=== PATIENT | male | born 1970 | race Caucasian/White ===

== ENCOUNTER 2016-11-17 22:31 | Inpatient (IN) | payer OTHER ==
[~2016-11-17] VITALS: Ht 172.7 cm; Wt 80.4 kg
[~2016-11-17 22:31] MED LIST: OXYC-360 PO; POLY10O LEFT EYE; Z.0.NO CURRENT MEDS
[2016-11-17 22:34] VITALS: BP 154/95; PULSE 97; RESP 16; TEMP 101.7; O2SAT 97
--- NOTE | 2016-11-17 22:49 | PD ---
Physical Exam Time Seen by Provider: 22:47 Narrative 46 y/o male here with 3 days of R leg redness, swelling. He thinks he was bit by a spider although he doesn't recall a spider biting him. He is febrile in triage. Vital signs reviewed. Seen at triage desk. Awaiting bed placement. Data Data Last Documented VS Vital Signs Date Time Temp Pulse Resp B/P Pulse Ox O2 Delivery O2 Flow Rate FiO2 11/17/16 22:34 101.7 97 16 154/95 97 MDM Medical Record Reviewed: Yes Supervised Visit with APRIL: Foreign Chan Nov 17, 2016 22:49
[2016-11-17] MEDS ORDERED: LISI-515 PO (23:36)
[2016-11-17] MEDS ORDERED: AMLO5 PO (23:36)
[2016-11-17] MEDS ORDERED: PIPERACIL-TAZO 4.5 GM PREMIX 100 ML IV ONE (23:45)
[2016-11-17] MEDS ORDERED: IBUPROFEN 800 MG TAB PO ONE (23:45)
[2016-11-17] MEDS ORDERED: VANCOMYCIN INJ 1,500 MG in SODIUM CHLORID 0.9% 500 ML INJ 500 ML IV ONE (23:45)
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
[2016-11-18] MEDS ORDERED: SODIUM CHLORIDE 0.9% FLUSH 10 ML FLUSH IV FLUSH PRN (00:15)
[2016-11-18] MEDS ORDERED: Vancomycin Consult Pharmacy 1 EA OTHER SCH (00:15)
[2016-11-18] MEDS ORDERED: NALOXONE HCL 0.4 MG/ML AMP IV PRN (00:15)
[2016-11-18 00:33] LABS: AUTOMATED NEUTROPHIL # 9.7 TH/MM3 (1.8-7.7); BASOPHIL % 0.4 % (0.0-2.0); EOSINOPHIL % 0.2 % (0.0-4.0); HEMATOCRIT 32.5 % (39.0-51.0); HEMO FLAGS DIFF FINAL; LYMPH % 9.9 % (9.0-44.0); LYMPHOCYTE # 1.2 TH/MM3 (1.0-4.8); MEAN CELL VOLUME 87.2 FL (80.0-100.0); MEAN CORPUSCULAR HEMOGLOBIN 29.6 PG (27.0-34.0); MONO % 11.1 % (0.0-8.0); NEUT % 78.4 % (16.0-70.0); PLATELET COUNT 117 TH/MM3 (150-450); RED BLOOD COUNT 3.72 MIL/MM3 (4.50-5.90); RED CELL DISTRIBUTION WIDTH 13.8 % (11.6-17.2); WHITE BLOOD COUNT 12.4 TH/MM3 (4.0-11.0)
[2016-11-18 00:46] LABS: BICARBONATE 29.8 MEQ/L (21.0-32.0); POTASSIUM 3.2 MEQ/L (3.5-5.1)
[2016-11-18] MEDS ORDERED: POTASSIUM CHLORIDE 20 MEQ CONTROLLED RELEASE TAB PO ONE (01:30)
[2016-11-18] MEDS: PIPERACIL-TAZO 4.5 GM PREMIX 100 ML IV SCH ×2 (05:47→11:31)
[2016-11-18 06:23] VITALS: BP 115/65; PULSE 68; RESP 16; O2SAT 97
[2016-11-18 08:00] VITALS: BP 113/67; PULSE 70; RESP 15; TEMP 97.8
[2016-11-18] MEDS ORDERED: ACETAMINOPHEN 325 MG TAB PO PRN (08:15)
--- NOTE | 2016-11-18 08:24 | HHI.HP ---
[facility] No Primary Care Physician Admission Diagnosis right lower leg abscess with cellulitis Diagnoses: (1) Cellulitis and abscess of right leg Diagnosis: Principal Chief Complaint: right leg swelling and pain Travel History International Travel<30 Days: No Contact w/Intl Traveler <30 Da: No Traveled to Known Affected Are: No Sepsis Criteria SIRS Criteria (2 or more): Temp > 100.9 or < 96.8, Heart rate over 90, WBC > 60025, < 4000 or > 10% bands Sepsis Criteria (SIRS+source): Infect source susp/known Criteria Outcome: Meets sepsis criteria History of Present Illness patient is a 46 y/o male with history of hypertension who presented to ER with swelling and redness over the right leg. he says that he probably had a spider bite a few days ago. he started to have some swelling and redness over the right leg which gradually got worse.he had some fever at home. he's complaining of some pain to the right leg. Review of Systems Constitutional: COMPLAINS OF: Fever right leg pain,swelling and redness. Past Family Social History Past Medical History hypertension Past Surgical History hernia repair Reported Medications lisinopril amlodipine Allergies: Coded Allergies: No Known Allergies (Verified , 11/17/16) Active Ordered Medications Current Medications Vancomycin HCl 1500 mg/Sodium Chloride 515 ml @ 250 mls/hr ONCE ONCE IV Last administered on 11/18/16 00:51; Start 11/17/16 at 23:45; Stop 11/18/16 at 01:48; Status DC Piperacillin Sod/ Tazobactam Sod (Zosyn 4.5 Gm Premix) 100 ml @ 200 mls/hr ONCE ONCE IV Last administered on 11/17/16 23:59; Start 11/17/16 at 23:45; Stop 11/18/16 at 00:14; Status DC Ibuprofen (Motrin) 800 mg ONCE ONCE PO Last administered on 11/17/16 23:59; Start 11/17/16 at 23:45; Stop 11/17/16 at 23:47; Status DC Sodium Chloride (NS Flush) 2 ml UNSCH PRN IV FLUSH FLUSH AFTER USING IV ACCESS ; Start 11/18/16 at 00:15 Sodium Chloride (NS Flush) 2 ml BID IV FLUSH ; Start 11/18/16 at 09:00 Naloxone HCl 0.4 mg 0.4 mg UNSCH PRN IV SEE LABEL COMMENTS; Start 11/18/16 at 00 :15 Pharmacy Profile Note 0 ml @ 0 mls/hr UNSCH OTHER ; Start 11/18/16 at 00:15 Piperacillin Sod/ Tazobactam Sod (Zosyn 4.5 Gm Premix) 100 ml @ 200 mls/hr Q6H IV Last administered on 11/18/16 05:47; Start 11/18/16 at 06:00 Potassium Chloride (KCl) 40 meq ONCE ONCE PO Last administered on 11/18/16 01: 35; Start 11/18/16 at 01:30; Stop 11/18/16 at 01:31; Status DC Family History not relevant to this admission. Social History doesn't smoke or drink. Physical Exam Vital Signs Vital Signs Date Time Temp Pulse Resp B/P Pulse Ox O2 Delivery O2 Flow Rate FiO2 11/18/16 06:23 68 16 115/65 97 Room Air 11/17/16 22:34 101.7 97 16 154/95 97 Physical Exam GENERAL: This is a well-nourished, well-developed patient, in no apparent distress. SKIN: No rashes, ecchymoses or lesions. Cool and dry. HEAD: Atraumatic. Normocephalic. No temporal or scalp tenderness. EYES: Pupils equal round and reactive. Extraocular motions intact. No scleral icterus. No injection or drainage. ENT: Nose without bleeding, purulent drainage or septal hematoma. Throat without erythema, tonsillar hypertrophy or exudate. Uvula midline. Airway patent. NECK: Trachea midline. No JVD or lymphadenopathy. Supple, nontender, no meningeal signs. CARDIOVASCULAR: Regular rate and rhythm without murmurs, gallops, or rubs. RESPIRATORY: Clear to auscultation. Breath sounds equal bilaterally. No wheezes , rales, or rhonchi. GASTROINTESTINAL: Abdomen soft, non-tender, nondistended. No hepato-splenomegaly , or palpable masses. No guarding. MUSCULOSKELETAL: swelling, erythema, warmth and tenderness over the right leg. NEUROLOGICAL: Awake and alert. Cranial nerves II through XII intact. Motor and sensory grossly within normal limits. Five out of 5 muscle strength in all muscle groups. Normal speech. Laboratory Laboratory Tests Test 11/17/16 23:55 White Blood Count 12.4 Red Blood Count 3.72 Hemoglobin 11.0 Hematocrit 32.5 Mean Corpuscular Volume 87.2 Mean Corpuscular Hemoglobin 29.6 Mean Corpuscular Hemoglobin 34.0 Concent Red Cell Distribution Width 13.8 Platelet Count 117 Mean Platelet Volume 11.7 Neutrophils (%) (Auto) 78.4 Lymphocytes (%) (Auto) 9.9 Monocytes (%) (Auto) 11.1 Eosinophils (%) (Auto) 0.2 Basophils (%) (Auto) 0.4 Neutrophils # (Auto) 9.7 Lymphocytes # (Auto) 1.2 Monocytes # (Auto) 1.4 Eosinophils # (Auto) 0.0 Basophils # (Auto) 0.0 CBC Comment DIFF FINAL Differential Comment Sodium Level 135 Potassium Level 3.2 Chloride Level 98 Carbon Dioxide Level 29.8 Anion Gap 7 Blood Urea Nitrogen 11 Creatinine 0.68 Estimat Glomerular Filtration 126 Rate Random Glucose 78 Calcium Level 8.4 Date/Time Procedure Status Source Growth 11/18/16 00:00 Aerobic Blood Culture Received Blood Peripheral Pending 11/18/16 00:00 Anaerobic Blood Culture Received Blood Peripheral Pending 11/17/16 23:55 Gram Stain Received Wound Leg Pending 11/17/16 23:55 Wound Culture Received Wound Leg Pending Result Diagram: 11/17/16 2355 11/17/16 2355 Assessment and Plan Assessment and Plan A/P - sepsis due to cellulitis of the right leg continue with IV antibiotic and pain control- ID consulted. -hypokalemia; replaced. -hypertension; resume home med Discussed Condition With the patient. Physician Certification 2 Midnight Certification Type: Admission for Inpatient Services Order for Inpatient Services The services are ordered in accordance with Medicare regulations or non- Medicare payer requirements, as applicable. In the case of services not specified as inpatient-only, they are appropriately provided as inpatient services in accordance with the 2-midnight benchmark. Estimated LOS (days): 2 days is the estimated time the patient will need to remain in the hospital, assuming treatment plan goals are met and no additional complications. Post-Hospital Plan: Home Antonio Kinney MD Nov 18, 2016 08:24
[2016-11-18] MEDS: amLODIPine BESYLATE 5 MG TAB PO SCH (10:16)
[2016-11-18] MEDS: SODIUM CHLORIDE 0.9% FLUSH 10 ML FLUSH IV FLUSH SCH ×2 (10:16→19:44)
[2016-11-18] MEDS: LISINOPRIL 20 MG TAB PO SCH (10:16)
[2016-11-18 11:54] VITALS: BP 140/70; PULSE 91; RESP 18; TEMP 100; O2SAT 95
[2016-11-18 15:03] VITALS: BP 142/67
[2016-11-18 15:10] VITALS: BP 141/81; PULSE 84; RESP 20; TEMP 98.8; O2SAT 99
[2016-11-18] MEDS: PHARMACY ORDERED LAB ONE (16:00)
[2016-11-18] MEDS: ACETAMINOPHEN/HYDROcodone 325 MG/5 MG TAB PO PRN (16:04)
[2016-11-18] MEDS: VANCOMYCIN INJ 2,000 MG in SODIUM CHLORID 0.9% 500 ML INJ 500 ML IV SCH (16:05)
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
[2016-11-18] MEDS: ceFAZolin 2 GM PREMIX 50 ML IV SCH (19:43)
[2016-11-18 20:00] VITALS: BP 128/73; PULSE 83; RESP 18; TEMP 98.8; O2SAT 97
[2016-11-19] VITALS: BP 138/80; PULSE 92; RESP 18; TEMP 100.3; O2SAT 96
[2016-11-19] MEDS: VANCOMYCIN INJ 2,000 MG in SODIUM CHLORID 0.9% 500 ML INJ 500 ML IV SCH ×2 (00:17→16:58)
[2016-11-19] MEDS: ceFAZolin 2 GM PREMIX 50 ML IV SCH ×4 (00:17→23:44)
[2016-11-19] MEDS: ACETAMINOPHEN/HYDROcodone 325 MG/5 MG TAB PO PRN ×5 (00:17→23:44)
[2016-11-19 04:00] VITALS: BP 111/64; PULSE 81; RESP 16; TEMP 99.2; O2SAT 95
[2016-11-19 08:00] VITALS: BP 150/85; PULSE 89; RESP 20; TEMP 98.4; O2SAT 99
[2016-11-19 08:47] LABS: BASOPHIL % 0.4 % (0.0-2.0); EOSINOPHIL # 0.2 TH/MM3 (0-0.4); EOSINOPHIL % 2.2 % (0.0-4.0); HEMATOCRIT 32.7 % (39.0-51.0); HEMO FLAGS DIFF FINAL; LYMPH % 11.2 % (9.0-44.0); LYMPHOCYTE # 0.9 TH/MM3 (1.0-4.8); MEAN CELL VOLUME 88.3 FL (80.0-100.0); MEAN CORPUSCULAR HEMOGLOBIN 29.3 PG (27.0-34.0); MEAN CORPUSCULAR HGB CONC 33.2 % (32.0-36.0); MONO % 9.8 % (0.0-8.0); NEUT % 76.4 % (16.0-70.0); PLATELET COUNT 104 TH/MM3 (150-450); RED CELL DISTRIBUTION WIDTH 13.6 % (11.6-17.2); WHITE BLOOD COUNT 7.9 TH/MM3 (4.0-11.0)
--- NOTE | 2016-11-19 08:51 | HHI.PR ---
Subjective Remarks f/u; right leg cellulitis still with some pain to the right leg. Tmax 100.3. awaiting MRI of the right leg. d/w the RN. Objective Vitals Vital Signs Date Time Temp Pulse Resp B/P Pulse Ox O2 Delivery O2 Flow Rate FiO2 11/19/16 04:00 99.2 81 16 111/64 95 11/19/16 00:00 100.3 92 18 138/80 96 11/18/16 20:00 98.8 83 18 128/73 97 11/18/16 15:19 Room Air 11/18/16 15:10 98.8 84 20 141/81 99 11/18/16 15:03 89 19 142/67 99 11/18/16 11:54 100.0 91 18 140/70 95 Room Air I/O 11/18/16 11/18/16 11/18/16 11/19/16 11/19/16 11/19/16 06:59 14:59 22:59 06:59 14:59 22:59 Intake Total 720 ml 480 ml Balance 720 ml 480 ml Intake Oral 720 ml 480 ml # Voids 2 2 2 # Bowel Movements 0 0 Result Diagram: 11/17/16235411/17/165 Objective Remarks GENERAL: This is a well-nourished, well-developed patient, in no apparent distress. CARDIOVASCULAR: Regular rate and regular rhythm without murmurs, gallops, or rubs. RESPIRATORY: Clear to auscultation. Breath sounds equal bilaterally. No wheezes , rales, or rhonchi. GASTROINTESTINAL: Abdomen soft, non-tender, nondistended. Normal, active bowel sounds MUSCULOSKELETAL: swelling of the right leg NEURO: Alert & Oriented x4 to person, place, time, situation. Moves all ext x4 skin; erythema and warmth over the right leg. Medications and IVs Current Medications Vancomycin HCl 1500 mg/Sodium Chloride 515 ml @ 250 mls/hr ONCE ONCE IV Last administered on 11/18/16 00:51; Start 11/17/16 at 23:45; Stop 11/18/16 at 01:48; Status DC Piperacillin Sod/ Tazobactam Sod (Zosyn 4.5 Gm Premix) 100 ml @ 200 mls/hr ONCE ONCE IV Last administered on 11/17/16 23:59; Start 11/17/16 at 23:45; Stop 11/18/16 at 00:14; Status DC Ibuprofen (Motrin) 800 mg ONCE ONCE PO Last administered on 11/17/16 23:59; Start 11/17/16 at 23:45; Stop 11/17/16 at 23:47; Status DC Sodium Chloride (NS Flush) 2 ml UNSCH PRN IV FLUSH FLUSH AFTER USING IV ACCESS ; Start 11/18/16 at 00:15 Sodium Chloride (NS Flush) 2 ml BID IV FLUSH Last administered on 11/18/16 19: 44; Start 11/18/16 at 09:00 Naloxone HCl 0.4 mg 0.4 mg UNSCH PRN IV SEE LABEL COMMENTS; Start 11/18/16 at 00 :15 Pharmacy Profile Note 0 ml @ 0 mls/hr UNSCH OTHER ; Start 11/18/16 at 00:15 Piperacillin Sod/ Tazobactam Sod (Zosyn 4.5 Gm Premix) 100 ml @ 200 mls/hr Q6H IV Last administered on 11/18/16 11:31; Start 11/18/16 at 06:00; Stop 11/18/16 at 16:16; Status DC Potassium Chloride (KCl) 40 meq ONCE ONCE PO Last administered on 11/18/16 01: 35; Start 11/18/16 at 01:30; Stop 11/18/16 at 01:31; Status DC Acetaminophen (Tylenol) 650 mg Q4H PRN PO FEVER/PAIN 1-5 Last administered on 12:10; Start 11/18/16 at 08:15 Acetaminophen/ Hydrocodone Bitart ([place] 5-325 Mg) 1 tab Q6H PRN PO PAIN 6-10 Last administered on 11/19/16 00:17; Start 11/18/16 at 08:15 Amlodipine Besylate (Norvasc) 5 mg DAILY PO Last administered on 11/18/16 10:16 ; Start 11/18/16 at 09:00 Lisinopril (Prinivil) 20 mg DAILY PO Last administered on 11/18/16 10:16; Start 11/18/16 at 09:00 Miscellaneous Information SPECIFIC LAB TO BE DRAWN:VANCO TROUGH DATE TO... ONCE ONCE .XX ; Start 11/19/16 at 12:45; Stop 11/19/16 at 12:46 Vancomycin HCl 2000 mg/Sodium Chloride 520 ml @ 250 mls/hr Q12H IV Last administered on 11/19/16 00:17; Start 11/18/16 at 13:00 Cefazolin Sodium/ Dextrose (Ancef 2 Gm Premix) 50 ml @ 100 mls/hr Q8H IV Last administered on 11/19/16 00:17; Start 11/18/16 at 17:00 Collagenase (Santyl Oint) 1 applic DAILY TOPICAL ; Start 11/18/16 at 17:00 Pneumococcal Polyvalent Vaccine (Pneumovax-23 Inj) 25 mcg ONCE ONCE IM ; Start 11/19/16 at 10:00; Stop 11/19/16 at 10:01 A/P Assessment and Plan A/P - sepsis due to cellulitis of the right leg continue with IV antibiotic; Ancef and Vanco-continue with pain control- ID consult appreciated and awaiting MRI of the right leg. -hypokalemia; replaced. -hypertension; resume home med -DVT prophylaxis with subq LoveAntonio Perry MD Nov 19, 2016 08:51
[2016-11-19] MEDS: amLODIPine BESYLATE 5 MG TAB PO SCH (08:56)
[2016-11-19] MEDS: LISINOPRIL 20 MG TAB PO SCH (08:56)
[2016-11-19] MEDS: SODIUM CHLORIDE 0.9% FLUSH 10 ML FLUSH IV FLUSH SCH ×2 (09:00→19:24)
[2016-11-19] MEDS: COLLAGENASE OINT 30 GM TUBE TOPICAL SCH (09:02)
[2016-11-19 09:16] LABS: BICARBONATE 31.5 MEQ/L (21.0-32.0); POTASSIUM 3.2 MEQ/L (3.5-5.1)
[2016-11-19] MEDS ORDERED: PNEUMOCOCCAL POLYVALENT INJ 25 MCG/0.5 ML SYR IM ONE (10:00)
[2016-11-19 12:00] VITALS: BP 134/78; PULSE 77; RESP 20; TEMP 99.1; O2SAT 96
[2016-11-19] MEDS ORDERED: POTASSIUM CHLORIDE 20 MEQ CONTROLLED RELEASE TAB PO ONE (12:00)
[2016-11-19] MEDS: ENOXAPARIN SODIUM 40 MG/0.4 ML SYRINGE SQ SCH (13:54)
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
[2016-11-19] MEDS: PHARMACY ORDERED LAB ONE (15:45)
[2016-11-19 16:00] VITALS: BP 141/80; PULSE 88; RESP 20; TEMP 99.3; O2SAT 99
[2016-11-19 20:00] VITALS: BP 135/69; PULSE 80; RESP 18; TEMP 99.3; O2SAT 97
[2016-11-20] VITALS: BP 131/76; PULSE 77; RESP 18; TEMP 98.6; O2SAT 99
[2016-11-20 04:00] VITALS: BP 132/79; PULSE 77; RESP 16; TEMP 98.4; O2SAT 98
[2016-11-20] MEDS: ACETAMINOPHEN/HYDROcodone 325 MG/5 MG TAB PO PRN ×2 (04:38→08:42)
[2016-11-20] MEDS: VANCOMYCIN INJ 2,000 MG in SODIUM CHLORID 0.9% 500 ML INJ 500 ML IV SCH ×2 (04:39→17:31)
[2016-11-20 08:00] VITALS: BP 117/68; PULSE 76; RESP 20; TEMP 99; O2SAT 98
[2016-11-20] MEDS: LISINOPRIL 20 MG TAB PO SCH (08:42)
[2016-11-20] MEDS: SODIUM CHLORIDE 0.9% FLUSH 10 ML FLUSH IV FLUSH SCH ×2 (08:42→20:01)
[2016-11-20] MEDS: amLODIPine BESYLATE 5 MG TAB PO SCH (08:42)
[2016-11-20] MEDS: COLLAGENASE OINT 30 GM TUBE TOPICAL SCH (08:43)
[2016-11-20] MEDS: ceFAZolin 2 GM PREMIX 50 ML IV SCH (08:43)
--- NOTE | 2016-11-20 11:25 | HHI.PR ---
Subjective Remarks in no acute distress. remains afebrile. has some pain to the right leg. Objective Vitals Vital Signs Date Time Temp Pulse Resp B/P Pulse Ox O2 Delivery O2 Flow Rate FiO2 11/20/16 10:33 Room Air 11/20/16 08:00 99.0 76 20 117/68 98 11/20/16 04:00 98.4 77 16 132/79 98 11/20/16 00:00 98.6 77 18 131/76 99 11/19/16 20:00 99.3 80 18 135/69 97 11/19/16 16:00 99.3 88 20 141/80 99 11/19/16 12:00 99.1 77 20 134/78 96 I/O 11/19/16 11/19/16 11/19/16 11/20/16 11/20/16 11/20/16 07:00 15:00 23:00 07:00 15:00 23:00 Intake Total 480 ml 580 ml 1440 ml Balance 480 ml 580 ml 1440 ml Intake Oral 480 ml 580 ml 1440 ml # Voids 2 7 4 # Bowel Movements 0 2 1 Result Diagram: 11/19/16 0725 11/19/16 0728 Objective Remarks GENERAL: This is a well-nourished, well-developed patient, in no apparent distress. CARDIOVASCULAR: Regular rate and regular rhythm without murmurs, gallops, or rubs. RESPIRATORY: Clear to auscultation. Breath sounds equal bilaterally. No wheezes , rales, or rhonchi. GASTROINTESTINAL: Abdomen soft, non-tender, nondistended. Normal, active bowel sounds MUSCULOSKELETAL: swelling of the right leg- seems to be improving. NEURO: Alert & Oriented x4 to person, place, time, situation. Moves all ext x4 skin; erythema and warmth over the right leg. Medications and IVs Current Medications Vancomycin HCl 1500 mg/Sodium Chloride 515 ml @ 250 mls/hr ONCE ONCE IV Last administered on 11/18/16 00:51; Start 11/17/16 at 23:45; Stop 11/18/16 at 01:48; Status DC Piperacillin Sod/ Tazobactam Sod (Zosyn 4.5 Gm Premix) 100 ml @ 200 mls/hr ONCE ONCE IV Last administered on 11/17/16 23:59; Start 11/17/16 at 23:45; Stop 11/18/16 at 00:14; Status DC Ibuprofen (Motrin) 800 mg ONCE ONCE PO Last administered on 11/17/16 23:59; Start 11/17/16 at 23:45; Stop 11/17/16 at 23:47; Status DC Sodium Chloride (NS Flush) 2 ml UNSCH PRN IV FLUSH FLUSH AFTER USING IV ACCESS ; Start 11/18/16 at 00:15 Sodium Chloride (NS Flush) 2 ml BID IV FLUSH Last administered on 11/20/16 08: 42; Start 11/18/16 at 09:00 Naloxone HCl 0.4 mg 0.4 mg UNSCH PRN IV SEE LABEL COMMENTS; Start 11/18/16 at 00 :15 Pharmacy Profile Note 0 ml @ 0 mls/hr UNSCH OTHER ; Start 11/18/16 at 00:15 Piperacillin Sod/ Tazobactam Sod (Zosyn 4.5 Gm Premix) 100 ml @ 200 mls/hr Q6H IV Last administered on 11/18/16 11:31; Start 11/18/16 at 06:00; Stop 11/18/16 at 16:16; Status DC Potassium Chloride (KCl) 40 meq ONCE ONCE PO Last administered on 11/18/16 01: 35; Start 11/18/16 at 01:30; Stop 11/18/16 at 01:31; Status DC Acetaminophen (Tylenol) 650 mg Q4H PRN PO FEVER/PAIN 1-5 Last administered on 12:10; Start 11/18/16 at 08:15 Acetaminophen/ Hydrocodone Bitart ([place] 5-325 Mg) 1 tab Q6H PRN PO PAIN 6-10 Last administered on 11/20/16 08:42; Start 11/18/16 at 08:15 Amlodipine Besylate (Norvasc) 5 mg DAILY PO Last administered on 11/20/16 08: 42; Start 11/18/16 at 09:00 Lisinopril (Prinivil) 20 mg DAILY PO Last administered on 11/20/16 08:42; Start 11/18/16 at 09:00 Miscellaneous Information SPECIFIC LAB TO BE DRAWN:VANCO TROUGH DATE TO... ONCE ONCE .XX Last administered on 11/19/16 15:45; Start 11/19/16 at 12:45; Stop 11/19/16 at 12:46; Status DC Vancomycin HCl 2000 mg/Sodium Chloride 520 ml @ 250 mls/hr Q12H IV Last administered on 11/19/16 16:58; Start 11/18/16 at 13:00; Stop 11/19/16 at 20:50 ; Status DC Cefazolin Sodium/ Dextrose (Ancef 2 Gm Premix) 50 ml @ 100 mls/hr Q8H IV Last administered on 11/20/16 08:43; Start 11/18/16 at 17:00 Collagenase (Santyl Oint) 1 applic DAILY TOPICAL Last administered on 08:43; Start 11/18/16 at 17:00 Pneumococcal Polyvalent Vaccine (Pneumovax-23 Inj) 25 mcg ONCE ONCE IM Last administered on 11/19/16 09:00; Start 11/19/16 at 10:00; Stop 11/19/16 at 10:01 ; Status DC Enoxaparin Sodium (Lovenox Inj) 40 mg Q24H SQ Last administered on 11/19/16 13 :54; Start 11/19/16 at 12:00 Potassium Chloride (KCl) 40 meq ONCE ONCE PO Last administered on 11/19/16 13 :54; Start 11/19/16 at 12:00; Stop 11/19/16 at 12:01; Status DC Miscellaneous Information SPECIFIC LAB TO BE DRAWN:VANCO TROUGH DATE TO BE DR... ONCE ONCE .XX ; Start 11/20/16 at 16:45; Stop 11/20/16 at 16:46 Vancomycin HCl/ Sodium Chloride (Vancomycin Inj/ NS 500 ml Inj) 520 ml @ 250 mls/hr Q12H IV Last administered on 11/20/16 04:39; Start 11/20/16 at 05:00 A/P Assessment and Plan A/P - sepsis due to cellulitis of the right leg continue with IV antibiotic; Ancef and Vanco-continue with pain control- ID consult appreciated and awaiting MRI of the right leg. -hypokalemia; replaced. -hypertension; resume home med -DVT prophylaxis with subq LovenoAntonio Landeros MD Nov 20, 2016 11:25
[2016-11-20] MEDS: ENOXAPARIN SODIUM 40 MG/0.4 ML SYRINGE SQ SCH (11:49)
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
[2016-11-20 12:00] VITALS: BP 141/86; PULSE 82; RESP 20; TEMP 98.4; O2SAT 99
[2016-11-20] MEDS: ACETAMINOPHEN/HYDROcodone 325 MG/7.5 MG TAB PO PRN ×3 (13:06→23:56)
[2016-11-20] MEDS ORDERED: GADODIAMIDE PF 287 MG/ML 5 ML VIAL (for RAD MRI) IV ONE (14:26)
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
[2016-11-20 16:00] VITALS: BP 124/70; PULSE 71; RESP 20; TEMP 98.6; O2SAT 97
[2016-11-20] MEDS ORDERED: PHARMACY ORDERED LAB ONE (16:45)
[2016-11-20 20:00] VITALS: BP 129/75; PULSE 68; PULSE 70; RESP 20; TEMP 98.7; O2SAT 96
[2016-11-20] MEDS ORDERED: LORazepam 0.5 MG TAB PO ONE (21:15)
[2016-11-21] VITALS (7 sets, daily range): BP systolic 129–145; BP diastolic 72–84; PULSE 58–81; RESP 16–20; TEMP 97.8–98.6; O2SAT 96–99
[2016-11-21] MEDS: VANCOMYCIN 1750 MG/NS 500 ML IV SCH ×4 (01:04→10:21)
[2016-11-21 07:08] LABS: AUTOMATED NEUTROPHIL # 2.8 TH/MM3 (1.8-7.7); BASOPHIL # 0.1 TH/MM3 (0-0.2); BASOPHIL % 1.2 % (0.0-2.0); EOSINOPHIL # 0.3 TH/MM3 (0-0.4); EOSINOPHIL % 5.1 % (0.0-4.0); HEMO FLAGS DIFF FINAL; LYMPH % 22.8 % (9.0-44.0); LYMPHOCYTE # 1.1 TH/MM3 (1.0-4.8); MEAN CELL VOLUME 85.8 FL (80.0-100.0); MEAN CORPUSCULAR HEMOGLOBIN 29.3 PG (27.0-34.0); MEAN CORPUSCULAR HGB CONC 34.1 % (32.0-36.0); MONO % 14.6 % (0.0-8.0); NEUT % 56.3 % (16.0-70.0); PLATELET COUNT 150 TH/MM3 (150-450); RED BLOOD COUNT 3.84 MIL/MM3 (4.50-5.90); RED CELL DISTRIBUTION WIDTH 13.6 % (11.6-17.2)
[2016-11-21] MEDS: ACETAMINOPHEN/HYDROcodone 325 MG/7.5 MG TAB PO PRN ×3 (07:26→17:54)
[2016-11-21 07:33] LABS: BICARBONATE 28.4 MEQ/L (21.0-32.0); POTASSIUM 3.8 MEQ/L (3.5-5.1)
[2016-11-21] MEDS: COLLAGENASE OINT 30 GM TUBE TOPICAL SCH (09:00)
--- NOTE | 2016-11-21 09:01 | HHI.PR ---
Subjective Remarks in no acute distress. still with some pain to the right leg. remains afebrile. complaining of anxiety. Objective Vitals Vital Signs Date Time Temp Pulse Resp B/P Pulse Ox O2 Delivery O2 Flow Rate FiO2 11/21/16 07:41 Room Air 11/21/16 04:00 98.1 58 20 129/75 96 11/21/16 00:00 98.6 76 20 129/72 96 11/20/16 20:00 70 11/20/16 20:00 98.7 68 20 129/75 96 11/20/16 19:45 Room Air 11/20/16 16:00 98.6 71 20 124/70 97 11/20/16 12:00 98.4 82 20 141/86 99 11/20/16 10:33 Room Air I/O 11/20/16 11/20/16 11/20/16 11/21/16 11/21/16 11/21/16 07:00 15:00 23:00 07:00 15:00 23:00 Intake Total 1440 ml 720 ml 1020 ml 1313 ml Balance 1440 ml 720 ml 1020 ml 1313 ml Intake Oral 1440 ml 720 ml 480 ml 720 ml IV Total 540 ml 593 ml # Voids 4 7 5 3 # Bowel Movements 1 1 0 0 Result Diagram: 11/21/16 0526 11/21/16 0526 Imaging Last Impressions Lower Extremity MRI 11/20/16 0000 Signed Impressions: Service Date/Time: Sunday, November 20, 2016 13:57 - CONCLUSION: Anterior and anterolateral pretibial cellulitis with subcutaneous fluid collection characteristic of an abscess. No bony or deep muscular involvement. Eladio Rojas MD Objective Remarks GENERAL: This is a well-nourished, well-developed patient, in no apparent distress. CARDIOVASCULAR: Regular rate and regular rhythm without murmurs, gallops, or rubs. RESPIRATORY: Clear to auscultation. Breath sounds equal bilaterally. No wheezes , rales, or rhonchi. GASTROINTESTINAL: Abdomen soft, non-tender, nondistended. Normal, active bowel sounds MUSCULOSKELETAL: swelling of the right leg- seems to be improving. NEURO: Alert & Oriented x4 to person, place, time, situation. Moves all ext x4 skin; erythema and warmth over the right leg. Medications and IVs Current Medications Vancomycin HCl 1500 mg/Sodium Chloride 515 ml @ 250 mls/hr ONCE ONCE IV Last administered on 11/18/16 00:51; Start 11/17/16 at 23:45; Stop 11/18/16 at 01:48; Status DC Piperacillin Sod/ Tazobactam Sod (Zosyn 4.5 Gm Premix) 100 ml @ 200 mls/hr ONCE ONCE IV Last administered on 11/17/16 23:59; Start 11/17/16 at 23:45; Stop 11/18/16 at 00:14; Status DC Ibuprofen (Motrin) 800 mg ONCE ONCE PO Last administered on 11/17/16 23:59; Start 11/17/16 at 23:45; Stop 11/17/16 at 23:47; Status DC Sodium Chloride (NS Flush) 2 ml UNSCH PRN IV FLUSH FLUSH AFTER USING IV ACCESS ; Start 11/18/16 at 00:15 Sodium Chloride (NS Flush) 2 ml BID IV FLUSH Last administered on 11/20/16 20: 01; Start 11/18/16 at 09:00 Naloxone HCl 0.4 mg 0.4 mg UNSCH PRN IV SEE LABEL COMMENTS; Start 11/18/16 at 00 :15 Pharmacy Profile Note 0 ml @ 0 mls/hr UNSCH OTHER ; Start 11/18/16 at 00:15 Piperacillin Sod/ Tazobactam Sod (Zosyn 4.5 Gm Premix) 100 ml @ 200 mls/hr Q6H IV Last administered on 11/18/16 11:31; Start 11/18/16 at 06:00; Stop 11/18/16 at 16:16; Status DC Potassium Chloride (KCl) 40 meq ONCE ONCE PO Last administered on 11/18/16 01: 35; Start 11/18/16 at 01:30; Stop 11/18/16 at 01:31; Status DC Acetaminophen (Tylenol) 650 mg Q4H PRN PO FEVER/PAIN 1-5 Last administered on 12:10; Start 11/18/16 at 08:15 Acetaminophen/ Hydrocodone Bitart ([place] 5-325 Mg) 1 tab Q6H PRN PO PAIN 6-10 Last administered on 11/20/16 08:42; Start 11/18/16 at 08:15; Stop 11/20/16 at 12:50; Status DC Amlodipine Besylate (Norvasc) 5 mg DAILY PO Last administered on 11/20/16 08: 42; Start 11/18/16 at 09:00 Lisinopril (Prinivil) 20 mg DAILY PO Last administered on 11/20/16 08:42; Start 11/18/16 at 09:00 Miscellaneous Information SPECIFIC LAB TO BE DRAWN:VANCO TROUGH DATE TO... ONCE ONCE .XX Last administered on 11/19/16 15:45; Start 11/19/16 at 12:45; Stop 11/19/16 at 12:46; Status DC Vancomycin HCl 2000 mg/Sodium Chloride 520 ml @ 250 mls/hr Q12H IV Last administered on 11/19/16 16:58; Start 11/18/16 at 13:00; Stop 11/19/16 at 20:50 ; Status DC Cefazolin Sodium/ Dextrose (Ancef 2 Gm Premix) 50 ml @ 100 mls/hr Q8H IV Last administered on 11/20/16 08:43; Start 11/18/16 at 17:00; Stop 11/20/16 at 11:58 ; Status DC Collagenase (Santyl Oint) 1 applic DAILY TOPICAL Last administered on 08:43; Start 11/18/16 at 17:00 Pneumococcal Polyvalent Vaccine (Pneumovax-23 Inj) 25 mcg ONCE ONCE IM Last administered on 11/19/16 09:00; Start 11/19/16 at 10:00; Stop 11/19/16 at 10:01 ; Status DC Enoxaparin Sodium (Lovenox Inj) 40 mg Q24H SQ Last administered on 11/20/16 11 :49; Start 11/19/16 at 12:00 Potassium Chloride (KCl) 40 meq ONCE ONCE PO Last administered on 11/19/16 13 :54; Start 11/19/16 at 12:00; Stop 11/19/16 at 12:01; Status DC Miscellaneous Information SPECIFIC LAB TO BE DRAWN:VANCO TROUGH DATE TO BE DR... ONCE ONCE .XX Last administered on 11/20/16 16:45; Start 11/20/16 at 16 :45; Stop 11/20/16 at 16:46; Status DC Vancomycin HCl/ Sodium Chloride (Vancomycin Inj/ NS 500 ml Inj) 520 ml @ 250 mls/hr Q12H IV Last administered on 11/20/16 17:31; Start 11/20/16 at 05:00; Stop 11/20/16 at 22:48; Status DC Acetaminophen/ Hydrocodone Bitart ([place] 7.5-325 Mg) 1 tab Q6H PRN PO PAIN 6- 10 Last administered on 11/21/16 07:26; Start 11/20/16 at 13:00 Gadodiamide (Omniscan Pf Inj) 15 ml STK-MED ONCE IV Last administered on 14:26; Start 11/20/16 at 14:26; Stop 11/20/16 at 14:27; Status DC Lorazepam 0.5 mg 0.5 mg ONCE ONCE PO Last administered on 11/20/16 21:43; Start 11/20/16 at 21:15; Stop 11/20/16 at 21:16; Status DC Vancomycin HCl/ Sodium Chloride (Vancomycin Inj/ NS 500 ml Inj) 517.5 ml @ 250 mls/hr Q8H IV Last administered on 11/21/16 01:04; Start 11/21/16 at 02:00 Miscellaneous Information SPECIFIC LAB TO BE ... ONCE ONCE .XX ; Start 11/21 at 17:45; Stop 11/21/16 at 17:46 A/P Assessment and Plan A/P - sepsis due to cellulitis of the right leg MRI of the right leg with : Anterior and anterolateral pretibial cellulitis with subcutaneous fluid collection characteristic of an abscess. No bony or deep muscular involvement. wound culture with MRSA. continue with IV Vanco-continue with pain control- ID following- will consult general surgery. -hypokalemia; replaced. -hypertension; resumed home med -DVT prophylaxis with subq Antonio Alexander MD Nov 21, 2016 09:01
[2016-11-21] MEDS: LISINOPRIL 20 MG TAB PO SCH (10:07)
[2016-11-21] MEDS: SODIUM CHLORIDE 0.9% FLUSH 10 ML FLUSH IV FLUSH SCH ×2 (10:07→21:27)
[2016-11-21] MEDS: amLODIPine BESYLATE 5 MG TAB PO SCH (10:07)
[2016-11-21] MEDS: ENOXAPARIN SODIUM 40 MG/0.4 ML SYRINGE SQ SCH (13:49)
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
[2016-11-21] MEDS ORDERED: PHARMACY ORDERED LAB ONE (17:45)
[2016-11-21] MEDS: LORazepam 0.5 MG TAB PO PRN (21:26)
[2016-11-22] VITALS (7 sets, daily range): BP systolic 120–139; BP diastolic 66–87; PULSE 60–76; RESP 18; TEMP 97.5–98.6; O2SAT 97–100
[2016-11-22] MEDS: ACETAMINOPHEN/HYDROcodone 325 MG/7.5 MG TAB PO PRN ×2 (00:02→06:29)
[2016-11-22] MEDS: VANCOMYCIN 1750 MG/NS 500 ML IV SCH ×6 (00:04→17:39)
[2016-11-22] MEDS ORDERED: PHARMACY ORDERED LAB ONE (08:45)
[2016-11-22] MEDS: SODIUM CHLORIDE 0.9% FLUSH 10 ML FLUSH IV FLUSH SCH ×2 (08:55→19:46)
[2016-11-22] MEDS: COLLAGENASE OINT 30 GM TUBE TOPICAL SCH (09:00)
[2016-11-22] MEDS ORDERED: GENTAMICIN SULFATE 80 MG/2 ML VIAL ONE (09:33)
[2016-11-22] MEDS ORDERED: DO NOT ADM ANY ANTICOAGULANT DRUGS PRN (10:05)
--- NOTE | 2016-11-22 10:06 | PD.OP ---
Operative Report Date of Surgery: Nov 22, 2016 Preoperative Diagnosis: R leg abscess Postoperative Diagnosis: same Procedure: Incision and drainage, minimal debridement R leg abscess with Vac dressing placement. Anesthesia: general Surgeon: David Abdul Secondary Market Manager(s): Albarran Operation and Findings: 14 cm length SQ abscess, minimal residual purulent drainage. David Abdul MD Nov 22, 2016 10:06
[2016-11-22] MEDS ORDERED: *morphine SULFATE 8 MG/ML PERIprocedure ONLY ONE (10:08)
[2016-11-22] MEDS ORDERED: fentaNYL CITRATE 250 MCG/5 ML AMP ONE (10:12)
[2016-11-22] MEDS ORDERED: *HYDROmorphone PF 1 MG VIAL PERIprocedural Use ONLY ONE (10:13)
[2016-11-22] MEDS ORDERED: Post-op Orders (for Pharmacy) MISC XX ONE (10:15)
[2016-11-22] MEDS ORDERED: SODIUM CHLORIDE 0.9% FLUSH 10 ML FLUSH IV FLUSH PRN (10:15)
[2016-11-22] MEDS ORDERED: HYDROmorphone HCL PF 1 MG/ML VIAL IV ONE (11:00)
[2016-11-22] MEDS: amLODIPine BESYLATE 5 MG TAB PO SCH (11:10)
[2016-11-22] MEDS: LISINOPRIL 20 MG TAB PO SCH (11:10)
[2016-11-22] MEDS: ACETAMINOPHEN 1000 MG/100 ML VIAL IV SCH ×2 (11:13→19:46)
[2016-11-22] MEDS: ENOXAPARIN SODIUM 40 MG/0.4 ML SYRINGE SQ SCH (11:14)
[2016-11-22] MEDS ORDERED: ONDANSETRON HCL 4 MG/2 ML VIAL IV PUSH ONE (12:00)
[2016-11-22] MEDS ORDERED: PROPOFOL 200 MG/20 ML AMP IV ONE (12:00)
[2016-11-22] MEDS: KETOROLAC TROMETHAMINE 30 MG/ML (IVP) VIAL IV PUSH SCH ×2 (12:48→17:41)
--- NOTE | 2016-11-22 13:51 | HHI.PR ---
Subjective Remarks resting comfortably with no distress. afebrile. pain is fairly controlled. no new complaints. Objective Vitals Vital Signs Date Time Temp Pulse Resp B/P Pulse Ox O2 Delivery O2 Flow Rate FiO2 11/22/16 12:00 97.7 60 18 138/87 100 11/22/16 10:35 60 16 98 Room Air 11/22/16 10:30 97.5 59 16 133/76 98 Room Air 11/22/16 10:15 62 16 131/79 96 Room Air 11/22/16 10:13 15 11/22/16 10:05 97.4 72 20 126/77 100 Nasal Cannula 3 11/22/16 08:00 98.6 67 18 133/75 98 11/22/16 07:00 Room Air 11/22/16 04:00 97.5 62 18 120/75 98 11/22/16 00:00 98.0 68 18 139/66 97 11/22/16 00:00 Room Air 11/21/16 20:00 71 11/21/16 20:00 Room Air 11/21/16 20:00 97.8 63 16 136/82 99 11/21/16 17:19 11/21/16 16:00 98.1 64 18 145/75 96 11/21/16 13:59 I/O 11/21/16 11/21/16 11/21/16 11/22/16 11/22/16 11/22/16 07:00 15:00 23:00 07:00 15:00 23:00 Intake Total 1313 ml 1460 ml 720 ml 500 ml Output Total 3 ml 30 ml Balance 1313 ml 1460 ml 720 ml -3 ml 470 ml Intake Oral 720 ml 960 ml 720 ml IV Total 593 ml 500 ml 100 ml Other 400 ml Output Urine Total 3 ml Estimated Blood Loss 30 ml # Voids 3 3 3 # Bowel Movements 0 0 Result Diagram: 11/21/16 0526 11/21/16 0526 Imaging Last Impressions Lower Extremity MRI 11/20/16 0000 Signed Impressions: Service Date/Time: Sunday, November 20, 2016 13:57 - CONCLUSION: Anterior and anterolateral pretibial cellulitis with subcutaneous fluid collection characteristic of an abscess. No bony or deep muscular involvement. Eladio Rojas MD Objective Remarks GENERAL: This is a well-nourished, well-developed patient, in no apparent distress. CARDIOVASCULAR: Regular rate and regular rhythm without murmurs, gallops, or rubs. RESPIRATORY: Clear to auscultation. Breath sounds equal bilaterally. No wheezes , rales, or rhonchi. GASTROINTESTINAL: Abdomen soft, non-tender, nondistended. Normal, active bowel sounds MUSCULOSKELETAL: wound vac in place- right leg. NEURO: Alert & Oriented x4 to person, place, time, situation. Moves all ext x4 skin; erythema and warmth over the right leg. Procedures I/D of the right leg/ wound vac placement. Medications and IVs Current Medications Vancomycin HCl 1500 mg/Sodium Chloride 515 ml @ 250 mls/hr ONCE ONCE IV Last administered on 11/18/16 00:51; Start 11/17/16 at 23:45; Stop 11/18/16 at 01:48; Status DC Piperacillin Sod/ Tazobactam Sod (Zosyn 4.5 Gm Premix) 100 ml @ 200 mls/hr ONCE ONCE IV Last administered on 11/17/16 23:59; Start 11/17/16 at 23:45; Stop 11/18/16 at 00:14; Status DC Ibuprofen (Motrin) 800 mg ONCE ONCE PO Last administered on 11/17/16 23:59; Start 11/17/16 at 23:45; Stop 11/17/16 at 23:47; Status DC Sodium Chloride (NS Flush) 2 ml UNSCH PRN IV FLUSH FLUSH AFTER USING IV ACCESS ; Start 11/18/16 at 00:15 Sodium Chloride (NS Flush) 2 ml BID IV FLUSH Last administered on 11/22/16 08: 55; Start 11/18/16 at 09:00 Naloxone HCl 0.4 mg 0.4 mg UNSCH PRN IV SEE LABEL COMMENTS; Start 11/18/16 at 00 :15 Pharmacy Profile Note 0 ml @ 0 mls/hr UNSCH OTHER ; Start 11/18/16 at 00:15 Piperacillin Sod/ Tazobactam Sod (Zosyn 4.5 Gm Premix) 100 ml @ 200 mls/hr Q6H IV Last administered on 11/18/16 11:31; Start 11/18/16 at 06:00; Stop 11/18/16 at 16:16; Status DC Potassium Chloride (KCl) 40 meq ONCE ONCE PO Last administered on 11/18/16 01: 35; Start 11/18/16 at 01:30; Stop 11/18/16 at 01:31; Status DC Acetaminophen (Tylenol) 650 mg Q4H PRN PO FEVER/PAIN 1-5 Last administered on 12:10; Start 11/18/16 at 08:15 Acetaminophen/ Hydrocodone Bitart ([place] 5-325 Mg) 1 tab Q6H PRN PO PAIN 6-10 Last administered on 11/20/16 08:42; Start 11/18/16 at 08:15; Stop 11/20/16 at 12:50; Status DC Amlodipine Besylate (Norvasc) 5 mg DAILY PO Last administered on 11/22/16 11: 10; Start 11/18/16 at 09:00 Lisinopril (Prinivil) 20 mg DAILY PO Last administered on 11/22/16 11:10; Start 11/18/16 at 09:00 Miscellaneous Information SPECIFIC LAB TO BE DRAWN:VANCO TROUGH DATE TO... ONCE ONCE .XX Last administered on 11/19/16 15:45; Start 11/19/16 at 12:45; Stop 11/19/16 at 12:46; Status DC Vancomycin HCl 2000 mg/Sodium Chloride 520 ml @ 250 mls/hr Q12H IV Last administered on 11/19/16 16:58; Start 11/18/16 at 13:00; Stop 11/19/16 at 20:50 ; Status DC Cefazolin Sodium/ Dextrose (Ancef 2 Gm Premix) 50 ml @ 100 mls/hr Q8H IV Last administered on 11/20/16 08:43; Start 11/18/16 at 17:00; Stop 11/20/16 at 11:58 ; Status DC Collagenase (Santyl Oint) 1 applic DAILY TOPICAL Last administered on 09:00; Start 11/18/16 at 17:00 Pneumococcal Polyvalent Vaccine (Pneumovax-23 Inj) 25 mcg ONCE ONCE IM Last administered on 11/19/16 09:00; Start 11/19/16 at 10:00; Stop 11/19/16 at 10:01 ; Status DC Enoxaparin Sodium (Lovenox Inj) 40 mg Q24H SQ Last administered on 11/21/16 13 :49; Start 11/19/16 at 12:00 Potassium Chloride (KCl) 40 meq ONCE ONCE PO Last administered on 11/19/16 13 :54; Start 11/19/16 at 12:00; Stop 11/19/16 at 12:01; Status DC Miscellaneous Information SPECIFIC LAB TO BE DRAWN:VANCO TROUGH DATE TO BE .[place] ONCE ONCE .XX Last administered on 11/20/16 16:45; Start 11/20/16 at 16 :45; Stop 11/20/16 at 16:46; Status DC Vancomycin HCl/ Sodium Chloride (Vancomycin Inj/ NS 500 ml Inj) 520 ml @ 250 mls/hr Q12H IV Last administered on 11/20/16 17:31; Start 11/20/16 at 05:00; Stop 11/20/16 at 22:48; Status DC Acetaminophen/ Hydrocodone Bitart ([place] 7.5-325 Mg) 1 tab Q6H PRN PO PAIN 6- 10 Last administered on 11/21/16 07:26; Start 11/20/16 at 13:00; Stop 11/21/16 at 08:58; Status DC Gadodiamide (Omniscan Pf Inj) 15 ml STK-MED ONCE IV Last administered on 14:26; Start 11/20/16 at 14:26; Stop 11/20/16 at 14:27; Status DC Lorazepam 0.5 mg 0.5 mg ONCE ONCE PO Last administered on 11/20/16 21:43; Start 11/20/16 at 21:15; Stop 11/20/16 at 21:16; Status DC Vancomycin HCl/ Sodium Chloride (Vancomycin Inj/ NS 500 ml Inj) 517.5 ml @ 250 mls/hr Q8H IV Last administered on 11/21/16 10:21; Start 11/21/16 at 02:00; Stop 11/21/16 at 16:57; Status DC Miscellaneous Information SPECIFIC LAB TO BE .. ONCE ONCE .XX ; Start 11/21 at 17:45; Stop 11/21/16 at 17:45; Status DC Acetaminophen/ Hydrocodone Bitart ([place] 7.5-325 Mg) 1 tab Q4H PRN PO PAIN 6- 10 Last administered on 11/22/16 06:29; Start 11/21/16 at 12:00 Lorazepam 0.5 mg 0.5 mg Q12HR PRN PO ANXIETY Last administered on 11/21/16 21: 26; Start 11/21/16 at 09:00 Vancomycin HCl/ Sodium Chloride (Vancomycin Inj/ NS 500 ml Inj) 517.5 ml @ 250 mls/hr Q8H IV Last administered on 11/22/16 08:52; Start 11/22/16 at 01:00 Miscellaneous Information SPECIFIC LAB TO BE DAMON... ONCE ONCE .XX Last administered on 11/22/16 08:40; Start 11/22/16 at 08:45; Stop 11/22/16 at 08:46 ; Status DC Gentamicin Sulfate (Gentamicin Inj) 240 mg STK-MED ONCE .ROUTE Last administered on 11/22/16 09:45; Start 11/22/16 at 09:33; Stop 11/22/16 at 09:34 ; Status DC Morphine Sulfate (*morphine INJ PERIprocedure ONLY) 8 mg STK-MED ONCE .ROUTE Last administered on 11/22/16 10:08; Start 11/22/16 at 10:08; Stop 11/22/16 at 10:09; Status DC Sodium Chloride (NS Flush) 2 ml UNSCH PRN IV FLUSH FLUSH AFTER USING IV ACCESS ; Start 11/22/16 at 10:15; Status UNV Sodium Chloride (NS Flush) 2 ml BID IV FLUSH ; Start 11/22/16 at 21:00; Status UNV Miscellaneous Information (Post-op Orders (for Pharmacy)) STAT ONCE XX ; Start 11/22/16 at 10:15; Stop 11/22/16 at 10:40; Status DC Ketorolac Tromethamine (Toradol Inj) 30 mg Q6HR IV PUSH Last administered on 12:48; Start 11/22/16 at 12:00; Stop 11/27/16 at 11:59 Acetaminophen (Ofirmev Inj) 1,000 mg Q8HR IV ; Start 11/22/16 at 14:00 Hydromorphone HCl (Dilaudid Pf Inj) 1 mg Q4H PRN IV PUSH BREAKTHROUGH PAIN; Start 11/22/16 at 10:15 Fentanyl Citrate (fentaNYL INJ) 250 mcg STK-MED ONCE .ROUTE ; Start 11/22/16 at 10:12; Stop 11/22/16 at 10:13; Status DC Hydromorphone HCl (*DILAUDID PF INJ PERIprocedural ONLY) 1 mg STK-MED ONCE .ROUTE Last administered on 11/22/16t 10:13; Start 11/22/16 at 10:13; Stop at 10:14; Status DC Miscellaneous Information ALL NURSING DEPARTME... UNSCH PRN .XX SEE LABEL COMMENTS; Start 11/22/16 at 10:05; Stop 11/23/16 at 10:04 Hydromorphone HCl (Dilaudid Pf Inj) 1 mg NOW ONCE IV ; Start 11/22/16 at 11:00 ; Stop 11/22/16 at 11:01; Status DC A/P Assessment and Plan A/P - sepsis due to cellulitis of the right leg MRI of the right leg with : Anterior and anterolateral pretibial cellulitis with subcutaneous fluid collection characteristic of an abscess. No bony or deep muscular involvement. wound culture with MRSA. s/p I/D and wound vac placement right leg- continue with IV Vanco-continue with pain control- ID and surgery following. -hypokalemia; replaced. -hypertension; resumed home med -DVT prophylaxis with subq LoveAntonio Perry MD Nov 22, 2016 13:51
[2016-11-22] MEDS: HYDROmorphone HCL PF 1 MG/ML VIAL IV PUSH PRN ×2 (15:12→19:49)
[2016-11-22] MEDS ORDERED: SODIUM CHLORIDE 0.9% FLUSH 10 ML FLUSH IV FLUSH SCH (21:00)
[2016-11-22] MEDS: LORazepam 0.5 MG TAB PO PRN (23:16)
[2016-11-23] VITALS (8 sets, daily range): BP systolic 127–150; BP diastolic 64–90; PULSE 66–78; RESP 18; TEMP 97.5–98.4; O2SAT 96–98
[2016-11-23] MEDS: KETOROLAC TROMETHAMINE 30 MG/ML (IVP) VIAL IV PUSH SCH ×5 (00:16→16:46)
[2016-11-23] MEDS: VANCOMYCIN 1750 MG/NS 500 ML IV SCH ×6 (00:16→16:46)
[2016-11-23] MEDS: HYDROmorphone HCL PF 1 MG/ML VIAL IV PUSH PRN ×5 (01:35→20:21)
[2016-11-23] MEDS: ACETAMINOPHEN 1000 MG/100 ML VIAL IV SCH ×3 (05:09→20:43)
[2016-11-23] MEDS: LISINOPRIL 20 MG TAB PO SCH (08:07)
[2016-11-23] MEDS: amLODIPine BESYLATE 5 MG TAB PO SCH (08:07)
[2016-11-23] MEDS: SODIUM CHLORIDE 0.9% FLUSH 10 ML FLUSH IV FLUSH SCH ×2 (08:08→21:09)
--- NOTE | 2016-11-23 10:55 | HHI.PR ---
Subjective Remarks overall doing fine. pain is controlled. no fever. no new complaints. Objective Vitals Vital Signs Date Time Temp Pulse Resp B/P Pulse Ox O2 Delivery O2 Flow Rate FiO2 11/23/16 08:00 98.3 66 18 127/73 96 11/23/16 04:00 98.0 68 18 127/64 98 11/23/16 00:00 98.2 68 18 135/85 98 11/22/16 21:36 98 21 11/22/16 20:00 70 11/22/16 20:00 98.2 76 18 127/67 97 11/22/16 19:00 Room Air 11/22/16 17:58 3.00 11/22/16 16:00 98.3 63 18 124/78 98 11/22/16 12:00 97.7 60 18 138/87 100 I/O 11/22/16 11/22/16 11/22/16 11/23/16 11/23/16 11/23/16 07:00 15:00 23:00 07:00 15:00 23:00 Intake Total 1405 ml 480 ml 480 ml Output Total 3 ml 430 ml 400 ml 600 ml Balance -3 ml 975 ml 80 ml -120 ml Intake Oral 720 ml 480 ml 480 ml IV Total 285 ml Other 400 ml Output Urine Total 3 ml 400 ml 400 ml 600 ml Estimated Blood Loss 30 ml # Voids 3 1 2 # Bowel Movements 0 0 0 Result Diagram: 11/21/16 0526 11/21/16 0526 Imaging Last Impressions Lower Extremity MRI 11/20/16 0000 Signed Impressions: Service Date/Time: Sunday, November 20, 2016 13:57 - CONCLUSION: Anterior and anterolateral pretibial cellulitis with subcutaneous fluid collection characteristic of an abscess. No bony or deep muscular involvement. Eladio Rojas MD Objective Remarks GENERAL: This is a well-nourished, well-developed patient, in no apparent distress. CARDIOVASCULAR: Regular rate and regular rhythm without murmurs, gallops, or rubs. RESPIRATORY: Clear to auscultation. Breath sounds equal bilaterally. No wheezes , rales, or rhonchi. GASTROINTESTINAL: Abdomen soft, non-tender, nondistended. Normal, active bowel sounds MUSCULOSKELETAL: wound vac in place- right leg. NEURO: Alert & Oriented x4 to person, place, time, situation. Moves all ext x4 skin; erythema and warmth over the right leg. Procedures I/D of the right leg/ wound vac placement. Medications and IVs Current Medications Vancomycin HCl 1500 mg/Sodium Chloride 515 ml @ 250 mls/hr ONCE ONCE IV Last administered on 11/18/16 00:51; Start 11/17/16 at 23:45; Stop 11/18/16 at 01:48; Status DC Piperacillin Sod/ Tazobactam Sod (Zosyn 4.5 Gm Premix) 100 ml @ 200 mls/hr ONCE ONCE IV Last administered on 11/17/16 23:59; Start 11/17/16 at 23:45; Stop 11/18/16 at 00:14; Status DC Ibuprofen (Motrin) 800 mg ONCE ONCE PO Last administered on 11/17/16 23:59; Start 11/17/16 at 23:45; Stop 11/17/16 at 23:47; Status DC Sodium Chloride (NS Flush) 2 ml UNSCH PRN IV FLUSH FLUSH AFTER USING IV ACCESS ; Start 11/18/16 at 00:15 Sodium Chloride (NS Flush) 2 ml BID IV FLUSH Last administered on 11/23/16 08: 08; Start 11/18/16 at 09:00 Naloxone HCl 0.4 mg 0.4 mg UNSCH PRN IV SEE LABEL COMMENTS; Start 11/18/16 at 00 :15 Pharmacy Profile Note 0 ml @ 0 mls/hr UNSCH OTHER ; Start 11/18/16 at 00:15 Piperacillin Sod/ Tazobactam Sod (Zosyn 4.5 Gm Premix) 100 ml @ 200 mls/hr Q6H IV Last administered on 11/18/16 11:31; Start 11/18/16 at 06:00; Stop 11/18/16 at 16:16; Status DC Potassium Chloride (KCl) 40 meq ONCE ONCE PO Last administered on 11/18/16 01: 35; Start 11/18/16 at 01:30; Stop 11/18/16 at 01:31; Status DC Acetaminophen (Tylenol) 650 mg Q4H PRN PO FEVER/PAIN 1-5 Last administered on 12:10; Start 11/18/16 at 08:15 Acetaminophen/ Hydrocodone Bitart ([place] 5-325 Mg) 1 tab Q6H PRN PO PAIN 6-10 Last administered on 11/20/16 08:42; Start 11/18/16 at 08:15; Stop 11/20/16 at 12:50; Status DC Amlodipine Besylate (Norvasc) 5 mg DAILY PO Last administered on 11/23/16 08: 07; Start 11/18/16 at 09:00 Lisinopril (Prinivil) 20 mg DAILY PO Last administered on 11/23/16 08:07; Start 11/18/16 at 09:00 Miscellaneous Information SPECIFIC LAB TO BE DRAWN:VANCO TROUGH DATE TO... ONCE ONCE .XX Last administered on 11/19/16 15:45; Start 11/19/16 at 12:45; Stop 11/19/16 at 12:46; Status DC Vancomycin HCl 2000 mg/Sodium Chloride 520 ml @ 250 mls/hr Q12H IV Last administered on 11/19/16 16:58; Start 11/18/16 at 13:00; Stop 11/19/16 at 20:50 ; Status DC Cefazolin Sodium/ Dextrose (Ancef 2 Gm Premix) 50 ml @ 100 mls/hr Q8H IV Last administered on 11/20/16 08:43; Start 11/18/16 at 17:00; Stop 11/20/16 at 11:58 ; Status DC Collagenase (Santyl Oint) 1 applic DAILY TOPICAL Last administered on 09:00; Start 11/18/16 at 17:00 Pneumococcal Polyvalent Vaccine (Pneumovax-23 Inj) 25 mcg ONCE ONCE IM Last administered on 11/19/16 09:00; Start 11/19/16 at 10:00; Stop 11/19/16 at 10:01 ; Status DC Enoxaparin Sodium (Lovenox Inj) 40 mg Q24H SQ Last administered on 11/21/16 13 :49; Start 11/19/16 at 12:00 Potassium Chloride (KCl) 40 meq ONCE ONCE PO Last administered on 11/19/16 13 :54; Start 11/19/16 at 12:00; Stop 11/19/16 at 12:01; Status DC Miscellaneous Information SPECIFIC LAB TO BE DRAWN:VANCO TROUGH DATE TO BE DR... ONCE ONCE .XX Last administered on 11/20/16 16:45; Start 11/20/16 at 16 :45; Stop 11/20/16 at 16:46; Status DC Vancomycin HCl/ Sodium Chloride (Vancomycin Inj/ NS 500 ml Inj) 520 ml @ 250 mls/hr Q12H IV Last administered on 11/20/16 17:31; Start 11/20/16 at 05:00; Stop 11/20/16 at 22:48; Status DC Acetaminophen/ Hydrocodone Bitart ([place] 7.5-325 Mg) 1 tab Q6H PRN PO PAIN 6- 10 Last administered on 11/21/16 07:26; Start 11/20/16 at 13:00; Stop 11/21/16 at 08:58; Status DC Gadodiamide (Omniscan Pf Inj) 15 ml STK-MED ONCE IV Last administered on 14:26; Start 11/20/16 at 14:26; Stop 11/20/16 at 14:27; Status DC Lorazepam 0.5 mg 0.5 mg ONCE ONCE PO Last administered on 11/20/16 21:43; Start 11/20/16 at 21:15; Stop 11/20/16 at 21:16; Status DC Vancomycin HCl/ Sodium Chloride (Vancomycin Inj/ NS 500 ml Inj) 517.5 ml @ 250 mls/hr Q8H IV Last administered on 11/21/16 10:21; Start 11/21/16 at 02:00; Stop 11/21/16 at 16:57; Status DC Miscellaneous Information SPECIFIC LAB TO BE ... ONCE ONCE .XX ; Start 11/21 at 17:45; Stop 11/21/16 at 17:45; Status DC Acetaminophen/ Hydrocodone Bitart ([place] 7.5-325 Mg) 1 tab Q4H PRN PO PAIN 6- 10 Last administered on 11/22/16 06:29; Start 11/21/16 at 12:00 Lorazepam 0.5 mg 0.5 mg Q12HR PRN PO ANXIETY Last administered on 11/22/16 23: 16; Start 11/21/16 at 09:00 Vancomycin HCl/ Sodium Chloride (Vancomycin Inj/ NS 500 ml Inj) 517.5 ml @ 250 mls/hr Q8H IV Last administered on 11/23/16 08:08; Start 11/22/16 at 01:00 Miscellaneous Information SPECIFIC LAB TO BE DAMON... ONCE ONCE .XX Last administered on 11/22/16 08:40; Start 11/22/16 at 08:45; Stop 11/22/16 at 08:46 ; Status DC Gentamicin Sulfate (Gentamicin Inj) 240 mg STK-MED ONCE .ROUTE Last administered on 11/22/16 09:45; Start 11/22/16 at 09:33; Stop 11/22/16 at 09:34 ; Status DC Morphine Sulfate (*morphine INJ PERIprocedure ONLY) 8 mg STK-MED ONCE .ROUTE Last administered on 11/22/16 10:08; Start 11/22/16 at 10:08; Stop 11/22/16 at 10:09; Status DC Sodium Chloride (NS Flush) 2 ml UNSCH PRN IV FLUSH FLUSH AFTER USING IV ACCESS ; Start 11/22/16 at 10:15; Status UNV Sodium Chloride (NS Flush) 2 ml BID IV FLUSH ; Start 11/22/16 at 21:00; Status UNV Miscellaneous Information (Post-op Orders (for Pharmacy)) STAT ONCE XX ; Start 11/22/16 at 10:15; Stop 11/22/16 at 10:40; Status DC Ketorolac Tromethamine (Toradol Inj) 30 mg Q6HR IV PUSH Last administered on 05:14; Start 11/22/16 at 12:00; Stop 11/27/16 at 11:59 Acetaminophen (Ofirmev Inj) 1,000 mg Q8HR IV ; Start 11/22/16 at 14:00 Hydromorphone HCl (Dilaudid Pf Inj) 1 mg Q4H PRN IV PUSH BREAKTHROUGH PAIN Last administered on 11/23/16 10:39; Start 11/22/16 at 10:15 Fentanyl Citrate (fentaNYL INJ) 250 mcg STK-MED ONCE .ROUTE ; Start 11/22/16 at 10:12; Stop 11/22/16 at 10:13; Status DC Hydromorphone HCl (*DILAUDID PF INJ PERIprocedural ONLY) 1 mg STK-MED ONCE .ROUTE Last administered on 11/22/16 10:13; Start 11/22/16 at 10:13; Stop at 10:14; Status DC Miscellaneous Information ALL NURSING DEPARTME... UNSCH PRN .XX SEE LABEL COMMENTS; Start 11/22/16 at 10:05; Stop 11/23/16 at 10:04; Status DC Hydromorphone HCl (Dilaudid Pf Inj) 1 mg NOW ONCE IV ; Start 11/22/16 at 11:00 ; Stop 11/22/16 at 11:01; Status DC A/P Assessment and Plan A/P - sepsis due to cellulitis of the right leg MRI of the right leg with : Anterior and anterolateral pretibial cellulitis with subcutaneous fluid collection characteristic of an abscess. No bony or deep muscular involvement. wound culture with MRSA. s/p I/D and wound vac placement right leg- continue with IV Vanco-continue with pain control- ID and surgery following. -hypokalemia; replaced. -hypertension; resumed home med -DVT prophylaxis with subq LovenoAntonio Landeros MD Nov 23, 2016 10:55
--- NOTE | 2016-11-23 11:21 | HHI.PR ---
Subjective Subjective Notes feels better, pain well controlled Objective Vitals/I&O Vital Signs Date Time Temp Pulse Resp B/P Pulse Ox O2 Delivery O2 Flow Rate FiO2 11/23/16 08:00 98.3 66 18 127/73 96 11/22/16 21:36 21 11/22/16 19:00 Room Air 11/22/16 17:58 3.00 Narrative Exam VAC intact, minimal drainage, decreased erythema and tenderness A/P Assessment and Plan POD 1 s/p I and VAC R leg abscess. Plan VAC dressing change tomorrow, convert to NS wet to dry . ABX per ID. David Abdul MD Nov 23, 2016 11:21
[2016-11-23] MEDS: ACETAMINOPHEN/HYDROcodone 325 MG/7.5 MG TAB PO PRN ×3 (12:20→21:52)
[2016-11-23] MEDS: ENOXAPARIN SODIUM 40 MG/0.4 ML SYRINGE SQ SCH (12:20)
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
[2016-11-23] MEDS: LORazepam 0.5 MG TAB PO PRN (21:51)
[2016-11-24] VITALS (7 sets, daily range): BP systolic 123–141; BP diastolic 65–85; PULSE 60–80; RESP 18; TEMP 98–98.5; O2SAT 95–99
[2016-11-24] MEDS: VANCOMYCIN 1750 MG/NS 500 ML IV SCH ×6 (00:32→16:05)
[2016-11-24] MEDS: KETOROLAC TROMETHAMINE 30 MG/ML (IVP) VIAL IV PUSH SCH ×4 (00:32→17:29)
[2016-11-24] MEDS: HYDROmorphone HCL PF 1 MG/ML VIAL IV PUSH PRN ×6 (00:32→20:37)
[2016-11-24] MEDS: ACETAMINOPHEN/HYDROcodone 325 MG/7.5 MG TAB PO PRN ×5 (02:48→21:56)
[2016-11-24] MEDS: ACETAMINOPHEN 1000 MG/100 ML VIAL IV SCH ×3 (04:53→20:00)
[2016-11-24] MEDS: LISINOPRIL 20 MG TAB PO SCH (09:07)
[2016-11-24] MEDS: amLODIPine BESYLATE 5 MG TAB PO SCH (09:07)
[2016-11-24] MEDS: SODIUM CHLORIDE 0.9% FLUSH 10 ML FLUSH IV FLUSH SCH ×2 (09:07→20:03)
--- NOTE | 2016-11-24 09:31 | HHI.PR ---
Subjective Remarks resting comfortably with no distress. remains afebrile. pain is controlled. Objective Vitals Vital Signs Date Time Temp Pulse Resp B/P Pulse Ox O2 Delivery O2 Flow Rate FiO2 11/24/16 08:00 98.5 69 18 131/80 96 11/24/16 04:00 98.0 60 18 123/76 98 11/24/16 04:00 Room Air 11/24/16 00:00 Room Air 11/24/16 00:00 98.2 72 18 141/85 96 11/23/16 20:00 97.5 78 18 150/90 96 11/23/16 20:00 Room Air 11/23/16 16:00 98.4 77 18 129/73 96 11/23/16 13:04 98 11/23/16 12:00 98.4 75 18 131/73 98 I/O 11/23/16 11/23/16 11/23/16 11/24/16 11/24/16 11/24/16 07:00 15:00 23:00 07:00 15:00 23:00 Intake Total 480 ml 960 ml 600 ml 480 ml Output Total 600 ml 650 ml 650 ml Balance -120 ml 960 ml -50 ml -170 ml Intake Oral 480 ml 960 ml 600 ml 480 ml Output Urine Total 600 ml 650 ml 650 ml # Voids 2 3 # Bowel Movements 0 1 3 0 Result Diagram: 11/21/16 0526 11/21/16 0526 Imaging Last Impressions Lower Extremity MRI 11/20/16 0000 Signed Impressions: Service Date/Time: Sunday, November 20, 2016 13:57 - CONCLUSION: Anterior and anterolateral pretibial cellulitis with subcutaneous fluid collection characteristic of an abscess. No bony or deep muscular involvement. Eladio Rojas MD Objective Remarks GENERAL: This is a well-nourished, well-developed patient, in no apparent distress. CARDIOVASCULAR: Regular rate and regular rhythm without murmurs, gallops, or rubs. RESPIRATORY: Clear to auscultation. Breath sounds equal bilaterally. No wheezes , rales, or rhonchi. GASTROINTESTINAL: Abdomen soft, non-tender, nondistended. Normal, active bowel sounds MUSCULOSKELETAL: wound vac in place- right leg. NEURO: Alert & Oriented x4 to person, place, time, situation. Moves all ext x4 skin; erythema and warmth over the right leg. Procedures I/D of the right leg/ wound vac placement. Medications and IVs Current Medications Vancomycin HCl 1500 mg/Sodium Chloride 515 ml @ 250 mls/hr ONCE ONCE IV Last administered on 11/18/16 00:51; Start 11/17/16 at 23:45; Stop 11/18/16 at 01:48; Status DC Piperacillin Sod/ Tazobactam Sod (Zosyn 4.5 Gm Premix) 100 ml @ 200 mls/hr ONCE ONCE IV Last administered on 11/17/16 23:59; Start 11/17/16 at 23:45; Stop 11/18/16 at 00:14; Status DC Ibuprofen (Motrin) 800 mg ONCE ONCE PO Last administered on 11/17/16 23:59; Start 11/17/16 at 23:45; Stop 11/17/16 at 23:47; Status DC Sodium Chloride (NS Flush) 2 ml UNSCH PRN IV FLUSH FLUSH AFTER USING IV ACCESS ; Start 11/18/16 at 00:15 Sodium Chloride (NS Flush) 2 ml BID IV FLUSH Last administered on 11/24/16 09: 07; Start 11/18/16 at 09:00 Naloxone HCl 0.4 mg 0.4 mg UNSCH PRN IV SEE LABEL COMMENTS; Start 11/18/16 at 00 :15 Pharmacy Profile Note 0 ml @ 0 mls/hr UNSCH OTHER ; Start 11/18/16 at 00:15 Piperacillin Sod/ Tazobactam Sod (Zosyn 4.5 Gm Premix) 100 ml @ 200 mls/hr Q6H IV Last administered on 11/18/16 11:31; Start 11/18/16 at 06:00; Stop 11/18/16 at 16:16; Status DC Potassium Chloride (KCl) 40 meq ONCE ONCE PO Last administered on 11/18/16 01: 35; Start 11/18/16 at 01:30; Stop 11/18/16 at 01:31; Status DC Acetaminophen (Tylenol) 650 mg Q4H PRN PO FEVER/PAIN 1-5 Last administered on 12:10; Start 11/18/16 at 08:15 Acetaminophen/ Hydrocodone Bitart ([place] 5-325 Mg) 1 tab Q6H PRN PO PAIN 6-10 Last administered on 11/20/16 08:42; Start 11/18/16 at 08:15; Stop 11/20/16 at 12:50; Status DC Amlodipine Besylate (Norvasc) 5 mg DAILY PO Last administered on 11/24/16 09: 07; Start 11/18/16 at 09:00 Lisinopril (Prinivil) 20 mg DAILY PO Last administered on 11/24/16 09:07; Start 11/18/16 at 09:00 Miscellaneous Information SPECIFIC LAB TO BE DRAWN:VANCO TROUGH DATE TO... ONCE ONCE .XX Last administered on 11/19/16 15:45; Start 11/19/16 at 12:45; Stop 11/19/16 at 12:46; Status DC Vancomycin HCl 2000 mg/Sodium Chloride 520 ml @ 250 mls/hr Q12H IV Last administered on 11/19/16 16:58; Start 11/18/16 at 13:00; Stop 11/19/16 at 20:50 ; Status DC Cefazolin Sodium/ Dextrose (Ancef 2 Gm Premix) 50 ml @ 100 mls/hr Q8H IV Last administered on 11/20/16 08:43; Start 11/18/16 at 17:00; Stop 11/20/16 at 11:58 ; Status DC Collagenase (Santyl Oint) 1 applic DAILY TOPICAL Last administered on 09:00; Start 11/18/16 at 17:00 Pneumococcal Polyvalent Vaccine (Pneumovax-23 Inj) 25 mcg ONCE ONCE IM Last administered on 11/19/16 09:00; Start 11/19/16 at 10:00; Stop 11/19/16 at 10:01 ; Status DC Enoxaparin Sodium (Lovenox Inj) 40 mg Q24H SQ Last administered on 11/23/16 12 :20; Start 11/19/16 at 12:00 Potassium Chloride (KCl) 40 meq ONCE ONCE PO Last administered on 11/19/16 13 :54; Start 11/19/16 at 12:00; Stop 11/19/16 at 12:01; Status DC Miscellaneous Information SPECIFIC LAB TO BE DRAWN:VANCO TROUGH DATE TO BE DR... ONCE ONCE .XX Last administered on 11/20/16 16:45; Start 11/20/16 at 16 :45; Stop 11/20/16 at 16:46; Status DC Vancomycin HCl/ Sodium Chloride (Vancomycin Inj/ NS 500 ml Inj) 520 ml @ 250 mls/hr Q12H IV Last administered on 11/20/16 17:31; Start 11/20/16 at 05:00; Stop 11/20/16 at 22:48; Status DC Acetaminophen/ Hydrocodone Bitart ([place] 7.5-325 Mg) 1 tab Q6H PRN PO PAIN 6- 10 Last administered on 11/21/16 07:26; Start 11/20/16 at 13:00; Stop 11/21/16 at 08:58; Status DC Gadodiamide (Omniscan Pf Inj) 15 ml STK-MED ONCE IV Last administered on 14:26; Start 11/20/16 at 14:26; Stop 11/20/16 at 14:27; Status DC Lorazepam 0.5 mg 0.5 mg ONCE ONCE PO Last administered on 11/20/16 21:43; Start 11/20/16 at 21:15; Stop 11/20/16 at 21:16; Status DC Vancomycin HCl/ Sodium Chloride (Vancomycin Inj/ NS 500 ml Inj) 517.5 ml @ 250 mls/hr Q8H IV Last administered on 11/21/16 10:21; Start 11/21/16 at 02:00; Stop 11/21/16 at 16:57; Status DC Miscellaneous Information SPECIFIC LAB TO BE ... ONCE ONCE .XX ; Start 11/21 at 17:45; Stop 11/21/16 at 17:45; Status DC Acetaminophen/ Hydrocodone Bitart ([place] 7.5-325 Mg) 1 tab Q4H PRN PO PAIN 6- 10 Last administered on 11/24/16 06:45; Start 11/21/16 at 12:00 Lorazepam 0.5 mg 0.5 mg Q12HR PRN PO ANXIETY Last administered on 11/23/16 21: 51; Start 11/21/16 at 09:00 Vancomycin HCl/ Sodium Chloride (Vancomycin Inj/ NS 500 ml Inj) 517.5 ml @ 250 mls/hr Q8H IV Last administered on 11/24/16 09:06; Start 11/22/16 at 01:00 Miscellaneous Information SPECIFIC LAB TO BE DAMON... ONCE ONCE .XX Last administered on 11/22/16 08:40; Start 11/22/16 at 08:45; Stop 11/22/16 at 08:46 ; Status DC Gentamicin Sulfate (Gentamicin Inj) 240 mg STK-MED ONCE .ROUTE Last administered on 11/22/16 09:45; Start 11/22/16 at 09:33; Stop 11/22/16 at 09:34 ; Status DC Morphine Sulfate (*morphine INJ PERIprocedure ONLY) 8 mg STK-MED ONCE .ROUTE Last administered on 11/22/16 10:08; Start 11/22/16 at 10:08; Stop 11/22/16 at 10:09; Status DC Sodium Chloride (NS Flush) 2 ml UNSCH PRN IV FLUSH FLUSH AFTER USING IV ACCESS ; Start 11/22/16 at 10:15; Status UNV Sodium Chloride (NS Flush) 2 ml BID IV FLUSH ; Start 11/22/16 at 21:00; Status UNV Miscellaneous Information (Post-op Orders (for Pharmacy)) STAT ONCE XX ; Start 11/22/16 at 10:15; Stop 11/22/16 at 10:40; Status DC Ketorolac Tromethamine (Toradol Inj) 30 mg Q6HR IV PUSH Last administered on 04:59; Start 11/22/16 at 12:00; Stop 11/27/16 at 11:59 Acetaminophen (Ofirmev Inj) 1,000 mg Q8HR IV ; Start 11/22/16 at 14:00 Hydromorphone HCl (Dilaudid Pf Inj) 1 mg Q4H PRN IV PUSH BREAKTHROUGH PAIN Last administered on 11/24/16 09:06; Start 11/22/16 at 10:15 Fentanyl Citrate (fentaNYL INJ) 250 mcg STK-MED ONCE .ROUTE ; Start 11/22/16 at 10:12; Stop 11/22/16 at 10:13; Status DC Hydromorphone HCl (*DILAUDID PF INJ PERIprocedural ONLY) 1 mg STK-MED ONCE .ROUTE Last administered on 11/22/16 10:13; Start 11/22/16 at 10:13; Stop at 10:14; Status DC Miscellaneous Information ALL NURSING DEPARTME... UNSCH PRN .XX SEE LABEL COMMENTS; Start 11/22/16 at 10:05; Stop 11/23/16 at 10:04; Status DC Hydromorphone HCl (Dilaudid Pf Inj) 1 mg NOW ONCE IV ; Start 11/22/16 at 11:00 ; Stop 11/22/16 at 11:01; Status DC A/P Assessment and Plan A/P - sepsis due to cellulitis of the right leg MRI of the right leg with : Anterior and anterolateral pretibial cellulitis with subcutaneous fluid collection characteristic of an abscess. No bony or deep muscular involvement. wound culture with MRSA. s/p I/D and wound vac placement right leg- continue with IV Vanco-continue with pain control- for wound vac change today. ID and surgery following. -hypokalemia; replaced. -hypertension; resumed home med -DVT prophylaxis with subq Lovenox Antonio Kinney MD Nov 24, 2016 09:31
--- NOTE | 2016-11-24 09:32 | MP ---
cc: JEISCA BARON M.D. DATE OF SURGERY: 11/22/2016 PREOPERATIVE DIAGNOSIS Right leg abscess. POSTOPERATIVE DIAGNOSIS Right leg abscess. PROCEDURE Incision and drainage, minimal debridement right leg abscess with VAC dressing placement. SURGEON Dr. Jesica Baron ANESTHESIA General. INDICATIONS This is an unfortunate 46-year-old gentleman who may have had a spider bite in the right leg. He developed an infection and drainage. MRI suggested undrained fluid. The patient had tenderness and purulence. Plans were made for I&D. INTRAOPERATIVE FINDINGS 14 cm length of the subcutaneous space connecting with the opening in the skin. There was minimal residual purulent drainage. Minimal necrotic tissue was debrided. A VAC dressing was placed. ESTIMATED BLOOD LOSS Less than 10 mL. DESCRIPTION OF PROCEDURE IN DETAIL The patient was identified as Tom Marcano, taken to the operating room and placed in supine position. Following the induction of adequate general endotracheal anesthesia the patient's right leg was prepped and draped in the usual sterile fashion with Betadine. A timeout procedure was performed. Following completion of the timeout procedure to everyone's satisfaction within the room, the area of concern was examined. A hemostat was placed into the opening and extended distally about 8 cm, proximally about 6 cm. The overlying skin was opened with a scalpel and hemostasis was controlled with electrocautery. Necrotic tissue was debrided with electrocautery. The wound was irrigated copiously with saline. A VAC dressing was placed using a small sponge cut to fill the wound. The skin was prepped with Mastisol and the VAC dressing placed in standard fashion. It was connected to suction and there was no evidence of significant leak. The patient tolerated the procedure well without apparent complication. Sponge, needle and instrument counts were correct at the end of the case. MD HIPOLITO Wagner/DANNI /10:02 AM /9:23 AM
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
--- NOTE | 2016-11-24 12:46 | HHI.PR ---
Subjective Subjective Notes Resting in bed Wound team at bedside Objective Vitals/I&O Vital Signs Date Time Temp Pulse Resp B/P Pulse Ox O2 Delivery O2 Flow Rate FiO2 11/24/16 12:00 98.4 65 18 131/79 99 11/24/16 04:00 Room Air 11/23/16 08:00 21 11/22/16 17:58 3.00 Labs Laboratory Tests Test 11/24/16 09:12 Creatinine 0.75 Estimat Glomerular Filtration 113 Rate Cardiovascular: Regular Lungs: Clear Abdomen: Non-distended, Non-tender Extremities: Other ([place]) Narrative Exam RIGHT leg: Wound vac sponge removed; wound is vascular; wound bed red without exudate or any drainage A/P Assessment and Plan 46 year old male s/p I&D of RIGHT leg abscess -Change Wound Vac today with Wound Team -Plan to remove Wound Vac and transition to wet to dry dressings -Pain control -ID following for antibiotics Attending Statement The exam, history, and the medical decision-making described in the above note were completed with the assistance of the mid-level provider. I reviewed and agree with the findings presented. I attest that I had a [id number] encounter with the patient on the same day, and personally performed and documented my assessment and findings in the medical record. Stephanie Burgos Nov 24, 2016 12:46 David Abdul MD Nov 24, 2016 16:18
--- NOTE | 2016-11-24 13:31 | PD.WCN.NOT ---
Neg Pressure Wound Therapy Wound Location Wound Location: R leg surgical wound Wound Description Length: 10 cm Width: 1.5 cm Depth: 1cm Undermining: from 10 to 11 o'clock ~1 cm and from 1 to 2 o'clock ~0.4cm Wound bed appearance: Wound is noted with ~90% vascular red granulation tissue, ~10% muscle tissue and minimal sanguinous drainage without odor. Periwound appearance: Unremarkable Settings Suction: 125 mmHg Intensity: Low Other Information: Windowpaned, Mushroomed Foam type: Black Number of pieces: 1 Additonal Information Patient seen on earlier for Wound VAC dressing change. Dressing change completed with Patricia MILLAN and fiction and nonfiction writer prose.Doctor Rios and Stephanie MCKINLEY at bedside during wound assessment.Wound VAC was placed following surgery of R leg abscess Incision and drainage on 11/22 by Doctor Abdul. Removed VAC dressing in place to clean surgical wound to R anterior leg.Cleansed wound with britni saline and applied skin prep before window paning wound with VAC drape. Applied black granufoam dressing in wound bed. Cut mushroom cap of black granufoam and applied on top. Approximated wound edges before Applying Sensi trac pad over mushroom cap. Sealed dressing with additional VAC drape. Wound VAC is suctioning at 125 mm/hg continuous low suction without leaks. Plan is to remove Wound VAC dressing on and apply wet to dry in place. Carmella Young Nov 24, 2016 13:31
[2016-11-24] MEDS: ENOXAPARIN SODIUM 40 MG/0.4 ML SYRINGE SQ SCH (16:06)
[2016-11-24] MEDS: LORazepam 0.5 MG TAB PO PRN (17:28)
[2016-11-25] VITALS (8 sets, daily range): BP systolic 119–140; BP diastolic 65–85; PULSE 59–79; RESP 16–20; TEMP 97.3–98.5; O2SAT 97–99
[2016-11-25] MEDS: HYDROmorphone HCL PF 1 MG/ML VIAL IV PUSH PRN ×6 (01:31→21:49)
[2016-11-25] MEDS: KETOROLAC TROMETHAMINE 30 MG/ML (IVP) VIAL IV PUSH SCH ×5 (01:31→23:39)
[2016-11-25] MEDS: VANCOMYCIN 1750 MG/NS 500 ML IV SCH ×8 (01:32→15:45)
[2016-11-25] MEDS: ACETAMINOPHEN/HYDROcodone 325 MG/7.5 MG TAB PO PRN ×6 (04:10→20:47)
[2016-11-25] MEDS: ACETAMINOPHEN 1000 MG/100 ML VIAL IV SCH ×3 (06:00→21:50)
[2016-11-25] MEDS: LISINOPRIL 20 MG TAB PO SCH (08:34)
[2016-11-25] MEDS: amLODIPine BESYLATE 5 MG TAB PO SCH (08:34)
[2016-11-25] MEDS ORDERED: PHARMACY ORDERED LAB ONE (08:45)
[2016-11-25] MEDS: COLLAGENASE OINT 30 GM TUBE TOPICAL SCH (09:00)
[2016-11-25] MEDS: SODIUM CHLORIDE 0.9% FLUSH 10 ML FLUSH IV FLUSH SCH ×2 (10:08→20:47)
[2016-11-25] MEDS: ENOXAPARIN SODIUM 40 MG/0.4 ML SYRINGE SQ SCH (12:05)
--- NOTE | 2016-11-25 12:24 | HHI.PR ---
Subjective Remarks resting comfortably with no distress. pain is controlled. no new complaints. Objective Vitals Vital Signs Date Time Temp Pulse Resp B/P Pulse Ox O2 Delivery O2 Flow Rate FiO2 11/25/16 08:51 99 11/25/16 08:40 Room Air 11/25/16 08:00 98.2 59 20 119/69 97 11/25/16 04:00 97.3 64 18 132/83 98 11/25/16 04:00 Room Air 11/25/16 00:00 Room Air 11/25/16 00:00 98.3 79 16 126/65 97 11/24/16 20:00 Room Air 11/24/16 20:00 98.1 80 18 138/85 95 11/24/16 16:00 98.0 70 18 128/65 97 11/24/16 13:33 95 I/O 11/24/16 11/24/16 11/24/16 11/25/16 11/25/16 11/25/16 07:00 15:00 23:00 07:00 15:00 23:00 Intake Total 480 ml 960 ml 720 ml 480 ml Output Total 650 ml 1800 ml 450 ml Balance -170 ml -840 ml 270 ml 480 ml Intake Oral 480 ml 960 ml 720 ml 480 ml Output Urine Total 650 ml 1800 ml 450 ml # Voids 2 4 # Bowel Movements 0 1 0 1 Result Diagram: 11/21/16 0526 11/24/16 0912 Imaging Last Impressions Lower Extremity MRI 11/20/16 0000 Signed Impressions: Service Date/Time: Sunday, November 20, 2016 13:57 - CONCLUSION: Anterior and anterolateral pretibial cellulitis with subcutaneous fluid collection characteristic of an abscess. No bony or deep muscular involvement. Eladio Rojas MD Objective Remarks GENERAL: This is a well-nourished, well-developed patient, in no apparent distress. CARDIOVASCULAR: Regular rate and regular rhythm without murmurs, gallops, or rubs. RESPIRATORY: Clear to auscultation. Breath sounds equal bilaterally. No wheezes , rales, or rhonchi. GASTROINTESTINAL: Abdomen soft, non-tender, nondistended. Normal, active bowel sounds MUSCULOSKELETAL: wound vac in place- right leg. NEURO: Alert & Oriented x4 to person, place, time, situation. Moves all ext x4 skin; erythema and warmth over the right leg. Procedures I/D of the right leg/ wound vac placement. Medications and IVs Current Medications Vancomycin HCl 1500 mg/Sodium Chloride 515 ml @ 250 mls/hr ONCE ONCE IV Last administered on 11/18/16 00:51; Start 11/17/16 at 23:45; Stop 11/18/16 at 01:48; Status DC Piperacillin Sod/ Tazobactam Sod (Zosyn 4.5 Gm Premix) 100 ml @ 200 mls/hr ONCE ONCE IV Last administered on 11/17/16 23:59; Start 11/17/16 at 23:45; Stop 11/18/16 at 00:14; Status DC Ibuprofen (Motrin) 800 mg ONCE ONCE PO Last administered on 11/17/16 23:59; Start 11/17/16 at 23:45; Stop 11/17/16 at 23:47; Status DC Sodium Chloride (NS Flush) 2 ml UNSCH PRN IV FLUSH FLUSH AFTER USING IV ACCESS ; Start 11/18/16 at 00:15 Sodium Chloride (NS Flush) 2 ml BID IV FLUSH Last administered on 11/25/16 10: 08; Start 11/18/16 at 09:00 Naloxone HCl 0.4 mg 0.4 mg UNSCH PRN IV SEE LABEL COMMENTS; Start 11/18/16 at 00 :15 Pharmacy Profile Note 0 ml @ 0 mls/hr UNSCH OTHER ; Start 11/18/16 at 00:15 Piperacillin Sod/ Tazobactam Sod (Zosyn 4.5 Gm Premix) 100 ml @ 200 mls/hr Q6H IV Last administered on 11/18/16 11:31; Start 11/18/16 at 06:00; Stop 11/18/16 at 16:16; Status DC Potassium Chloride (KCl) 40 meq ONCE ONCE PO Last administered on 11/18/16 01: 35; Start 11/18/16 at 01:30; Stop 11/18/16 at 01:31; Status DC Acetaminophen (Tylenol) 650 mg Q4H PRN PO FEVER/PAIN 1-5 Last administered on 12:10; Start 11/18/16 at 08:15 Acetaminophen/ Hydrocodone Bitart ([place] 5-325 Mg) 1 tab Q6H PRN PO PAIN 6-10 Last administered on 11/20/16 08:42; Start 11/18/16 at 08:15; Stop 11/20/16 at 12:50; Status DC Amlodipine Besylate (Norvasc) 5 mg DAILY PO Last administered on 11/25/16 08: 34; Start 11/18/16 at 09:00 Lisinopril (Prinivil) 20 mg DAILY PO Last administered on 11/25/16 08:34; Start 11/18/16 at 09:00 Miscellaneous Information SPECIFIC LAB TO BE DRAWN:VANCO TROUGH DATE TO... ONCE ONCE .XX Last administered on 11/19/16 15:45; Start 11/19/16 at 12:45; Stop 11/19/16 at 12:46; Status DC Vancomycin HCl 2000 mg/Sodium Chloride 520 ml @ 250 mls/hr Q12H IV Last administered on 11/19/16 16:58; Start 11/18/16 at 13:00; Stop 11/19/16 at 20:50 ; Status DC Cefazolin Sodium/ Dextrose (Ancef 2 Gm Premix) 50 ml @ 100 mls/hr Q8H IV Last administered on 11/20/16 08:43; Start 11/18/16 at 17:00; Stop 11/20/16 at 11:58 ; Status DC Collagenase (Santyl Oint) 1 applic DAILY TOPICAL Last administered on 09:00; Start 11/18/16 at 17:00 Pneumococcal Polyvalent Vaccine (Pneumovax-23 Inj) 25 mcg ONCE ONCE IM Last administered on 11/19/16 09:00; Start 11/19/16 at 10:00; Stop 11/19/16 at 10:01 ; Status DC Enoxaparin Sodium (Lovenox Inj) 40 mg Q24H SQ Last administered on 11/25/16 12 :05; Start 11/19/16 at 12:00 Potassium Chloride (KCl) 40 meq ONCE ONCE PO Last administered on 11/19/16 13 :54; Start 11/19/16 at 12:00; Stop 11/19/16 at 12:01; Status DC Miscellaneous Information SPECIFIC LAB TO BE DRAWN:VANCO TROUGH DATE TO BE DR... ONCE ONCE .XX Last administered on 11/20/16 16:45; Start 11/20/16 at 16 :45; Stop 11/20/16 at 16:46; Status DC Vancomycin HCl/ Sodium Chloride (Vancomycin Inj/ NS 500 ml Inj) 520 ml @ 250 mls/hr Q12H IV Last administered on 11/20/16 17:31; Start 11/20/16 at 05:00; Stop 11/20/16 at 22:48; Status DC Acetaminophen/ Hydrocodone Bitart ([place] 7.5-325 Mg) 1 tab Q6H PRN PO PAIN 6- 10 Last administered on 11/21/16 07:26; Start 11/20/16 at 13:00; Stop 11/21/16 at 08:58; Status DC Gadodiamide (Omniscan Pf Inj) 15 ml STK-MED ONCE IV Last administered on 14:26; Start 11/20/16 at 14:26; Stop 11/20/16 at 14:27; Status DC Lorazepam 0.5 mg 0.5 mg ONCE ONCE PO Last administered on 11/20/16 21:43; Start 11/20/16 at 21:15; Stop 11/20/16 at 21:16; Status DC Vancomycin HCl/ Sodium Chloride (Vancomycin Inj/ NS 500 ml Inj) 517.5 ml @ 250 mls/hr Q8H IV Last administered on 11/21/16 10:21; Start 11/21/16 at 02:00; Stop 11/21/16 at 16:57; Status DC Miscellaneous Information SPECIFIC LAB TO BE ... ONCE ONCE .XX ; Start 11/21 at 17:45; Stop 11/21/16 at 17:45; Status DC Acetaminophen/ Hydrocodone Bitart ([place] 7.5-325 Mg) 1 tab Q4H PRN PO PAIN 6- 10 Last administered on 11/25/16 12:06; Start 11/21/16 at 12:00 Lorazepam 0.5 mg 0.5 mg Q12HR PRN PO ANXIETY Last administered on 11/24/16 17: 28; Start 11/21/16 at 09:00 Vancomycin HCl/ Sodium Chloride (Vancomycin Inj/ NS 500 ml Inj) 517.5 ml @ 250 mls/hr Q8H IV Last administered on 11/25/16 01:32; Start 11/22/16 at 01:00 Miscellaneous Information SPECIFIC LAB TO BE DAMON... ONCE ONCE .XX Last administered on 11/22/16 08:40; Start 11/22/16 at 08:45; Stop 11/22/16 at 08:46 ; Status DC Gentamicin Sulfate (Gentamicin Inj) 240 mg STK-MED ONCE .ROUTE Last administered on 11/22/16 09:45; Start 11/22/16 at 09:33; Stop 11/22/16 at 09:34 ; Status DC Morphine Sulfate (*morphine INJ PERIprocedure ONLY) 8 mg STK-MED ONCE .ROUTE Last administered on 11/22/16 10:08; Start 11/22/16 at 10:08; Stop 11/22/16 at 10:09; Status DC Sodium Chloride (NS Flush) 2 ml UNSCH PRN IV FLUSH FLUSH AFTER USING IV ACCESS ; Start 11/22/16 at 10:15; Status UNV Sodium Chloride (NS Flush) 2 ml BID IV FLUSH ; Start 11/22/16 at 21:00; Status UNV Miscellaneous Information (Post-op Orders (for Pharmacy)) STAT ONCE XX ; Start 11/22/16 at 10:15; Stop 11/22/16 at 10:40; Status DC Ketorolac Tromethamine (Toradol Inj) 30 mg Q6HR IV PUSH Last administered on 12:05; Start 11/22/16 at 12:00; Stop 11/27/16 at 11:59 Acetaminophen (Ofirmev Inj) 1,000 mg Q8HR IV ; Start 11/22/16 at 14:00 Hydromorphone HCl (Dilaudid Pf Inj) 1 mg Q4H PRN IV PUSH BREAKTHROUGH PAIN Last administered on 11/25/16 10:07; Start 11/22/16 at 10:15 Fentanyl Citrate (fentaNYL INJ) 250 mcg STK-MED ONCE .ROUTE ; Start 11/22/16 at 10:12; Stop 11/22/16 at 10:13; Status DC Hydromorphone HCl (*DILAUDID PF INJ PERIprocedural ONLY) 1 mg STK-MED ONCE .ROUTE Last administered on 11/22/16 10:13; Start 11/22/16 at 10:13; Stop at 10:14; Status DC Miscellaneous Information ALL NURSING DEPARTME... UNSCH PRN .XX SEE LABEL COMMENTS; Start 11/22/16 at 10:05; Stop 11/23/16 at 10:04; Status DC Hydromorphone HCl (Dilaudid Pf Inj) 1 mg NOW ONCE IV ; Start 11/22/16 at 11:00 ; Stop 11/22/16 at 11:01; Status DC Miscellaneous Information SPECIFIC LAB TO BE DRAWN:VANCOMYCIN TROUGH DATE TO... ONCE ONCE .XX ; Start 11/25/16 at 08:45; Stop 11/25/16 at 08:46; Status DC A/P Assessment and Plan A/P - sepsis due to cellulitis of the right leg MRI of the right leg with : Anterior and anterolateral pretibial cellulitis with subcutaneous fluid collection characteristic of an abscess. No bony or deep muscular involvement. wound culture with MRSA. s/p I/D and wound vac placement right leg- continue with IV Vanco-continue with pain control- wound vac to be removed tomorrow- per surgery. ID and surgery following. -hypokalemia; replaced. -hypertension; resumed home med -DVT prophylaxis with subq Lovenox Discharge Planning dc home with po antibiotics- when cleared by surgery. Antonio Kinney MD Nov 25, 2016 12:24
[2016-11-25] MEDS: LORazepam 0.5 MG TAB PO PRN (21:49)
[2016-11-26] VITALS: BP 125/80; PULSE 75; RESP 18; TEMP 97.9; O2SAT 98
[2016-11-26] MEDS: ACETAMINOPHEN/HYDROcodone 325 MG/7.5 MG TAB PO PRN ×3 (00:42→10:11)
[2016-11-26] MEDS: VANCOMYCIN 1750 MG/NS 500 ML IV SCH ×6 (00:50→17:00)
[2016-11-26] MEDS: HYDROmorphone HCL PF 1 MG/ML VIAL IV PUSH PRN ×3 (01:56→11:24)
[2016-11-26 04:00] VITALS: BP 117/70; PULSE 71; RESP 18; TEMP 97.8; O2SAT 96
[2016-11-26] MEDS: ACETAMINOPHEN 1000 MG/100 ML VIAL IV SCH ×2 (05:24→14:00)
[2016-11-26] MEDS: KETOROLAC TROMETHAMINE 30 MG/ML (IVP) VIAL IV PUSH SCH ×3 (05:28→17:57)
[2016-11-26 08:00] VITALS: BP 112/64; PULSE 94; RESP 20; TEMP 97.5; O2SAT 96
[2016-11-26] MEDS: amLODIPine BESYLATE 5 MG TAB PO SCH (08:13)
[2016-11-26] MEDS: COLLAGENASE OINT 30 GM TUBE TOPICAL SCH (08:13)
[2016-11-26] MEDS: LISINOPRIL 20 MG TAB PO SCH (08:13)
[2016-11-26] MEDS: SODIUM CHLORIDE 0.9% FLUSH 10 ML FLUSH IV FLUSH SCH (08:13)
--- NOTE | 2016-11-26 10:32 | HHI.PR ---
Subjective Remarks in no acute distress. pain is fairly controlled. no fever. Objective Vitals Vital Signs Date Time Temp Pulse Resp B/P Pulse Ox O2 Delivery O2 Flow Rate FiO2 11/26/16 08:15 98 Room Air 11/26/16 04:00 97.8 71 18 117/70 96 11/26/16 00:00 97.9 75 18 125/80 98 11/25/16 20:20 98 11/25/16 20:03 Room Air 11/25/16 20:00 98.4 77 18 135/77 97 11/25/16 16:00 98.5 72 20 133/85 97 11/25/16 12:00 97.6 76 20 140/81 99 I/O 11/25/16 11/25/16 11/25/16 11/26/16 11/26/16 11/26/16 06:59 14:59 22:59 06:59 14:59 22:59 Intake Total 480 ml 840 ml 360 ml 360 ml Output Total 850 ml 350 ml Balance 480 ml 840 ml -490 ml 10 ml Intake Oral 480 ml 840 ml 360 ml 360 ml Output Urine Total 850 ml 350 ml # Voids 4 5 1 1 # Bowel Movements 1 1 1 1 Result Diagram: 11/26/16 0615 Imaging Last Impressions Lower Extremity MRI 11/20/16 0000 Signed Impressions: Service Date/Time: Sunday, November 20, 2016 13:57 - CONCLUSION: Anterior and anterolateral pretibial cellulitis with subcutaneous fluid collection characteristic of an abscess. No bony or deep muscular involvement. Eladio Rojas MD Objective Remarks GENERAL: This is a well-nourished, well-developed patient, in no apparent distress. CARDIOVASCULAR: Regular rate and regular rhythm without murmurs, gallops, or rubs. RESPIRATORY: Clear to auscultation. Breath sounds equal bilaterally. No wheezes , rales, or rhonchi. GASTROINTESTINAL: Abdomen soft, non-tender, nondistended. Normal, active bowel sounds MUSCULOSKELETAL: wound vac in place- right leg. NEURO: Alert & Oriented x4 to person, place, time, situation. Moves all ext x4 skin; erythema and warmth over the right leg. Procedures I/D of the right leg/ wound vac placement. Medications and IVs Current Medications Vancomycin HCl 1500 mg/Sodium Chloride 515 ml @ 250 mls/hr ONCE ONCE IV Last administered on 11/18/16 00:51; Start 11/17/16 at 23:45; Stop 11/18/16 at 01:48; Status DC Piperacillin Sod/ Tazobactam Sod (Zosyn 4.5 Gm Premix) 100 ml @ 200 mls/hr ONCE ONCE IV Last administered on 11/17/16 23:59; Start 11/17/16 at 23:45; Stop 11/18/16 at 00:14; Status DC Ibuprofen (Motrin) 800 mg ONCE ONCE PO Last administered on 11/17/16 23:59; Start 11/17/16 at 23:45; Stop 11/17/16 at 23:47; Status DC Sodium Chloride (NS Flush) 2 ml UNSCH PRN IV FLUSH FLUSH AFTER USING IV ACCESS ; Start 11/18/16 at 00:15 Sodium Chloride (NS Flush) 2 ml BID IV FLUSH Last administered on 11/26/16 08: 13; Start 11/18/16 at 09:00 Naloxone HCl 0.4 mg 0.4 mg UNSCH PRN IV SEE LABEL COMMENTS; Start 11/18/16 at 00 :15 Pharmacy Profile Note 0 ml @ 0 mls/hr UNSCH OTHER ; Start 11/18/16 at 00:15 Piperacillin Sod/ Tazobactam Sod (Zosyn 4.5 Gm Premix) 100 ml @ 200 mls/hr Q6H IV Last administered on 11/18/16 11:31; Start 11/18/16 at 06:00; Stop 11/18/16 at 16:16; Status DC Potassium Chloride (KCl) 40 meq ONCE ONCE PO Last administered on 11/18/16 01: 35; Start 11/18/16 at 01:30; Stop 11/18/16 at 01:31; Status DC Acetaminophen (Tylenol) 650 mg Q4H PRN PO FEVER/PAIN 1-5 Last administered on 12:10; Start 11/18/16 at 08:15 Acetaminophen/ Hydrocodone Bitart ([place] 5-325 Mg) 1 tab Q6H PRN PO PAIN 6-10 Last administered on 11/20/16 08:42; Start 11/18/16 at 08:15; Stop 11/20/16 at 12:50; Status DC Amlodipine Besylate (Norvasc) 5 mg DAILY PO Last administered on 11/26/16 08: 13; Start 11/18/16 at 09:00 Lisinopril (Prinivil) 20 mg DAILY PO Last administered on 11/26/16 08:13; Start 11/18/16 at 09:00 Miscellaneous Information SPECIFIC LAB TO BE DRAWN:VANCO TROUGH DATE TO... ONCE ONCE .XX Last administered on 11/19/16 15:45; Start 11/19/16 at 12:45; Stop 11/19/16 at 12:46; Status DC Vancomycin HCl 2000 mg/Sodium Chloride 520 ml @ 250 mls/hr Q12H IV Last administered on 11/19/16 16:58; Start 11/18/16 at 13:00; Stop 11/19/16 at 20:50 ; Status DC Cefazolin Sodium/ Dextrose (Ancef 2 Gm Premix) 50 ml @ 100 mls/hr Q8H IV Last administered on 11/20/16 08:43; Start 11/18/16 at 17:00; Stop 11/20/16 at 11:58 ; Status DC Collagenase (Santyl Oint) 1 applic DAILY TOPICAL Last administered on 09:00; Start 11/18/16 at 17:00 Pneumococcal Polyvalent Vaccine (Pneumovax-23 Inj) 25 mcg ONCE ONCE IM Last administered on 11/19/16 09:00; Start 11/19/16 at 10:00; Stop 11/19/16 at 10:01 ; Status DC Enoxaparin Sodium (Lovenox Inj) 40 mg Q24H SQ Last administered on 11/25/16 12 :05; Start 11/19/16 at 12:00 Potassium Chloride (KCl) 40 meq ONCE ONCE PO Last administered on 11/19/16 13 :54; Start 11/19/16 at 12:00; Stop 11/19/16 at 12:01; Status DC Miscellaneous Information SPECIFIC LAB TO BE DRAWN:VANCO TROUGH DATE TO BE DR... ONCE ONCE .XX Last administered on 11/20/16 16:45; Start 11/20/16 at 16 :45; Stop 11/20/16 at 16:46; Status DC Vancomycin HCl/ Sodium Chloride (Vancomycin Inj/ NS 500 ml Inj) 520 ml @ 250 mls/hr Q12H IV Last administered on 11/20/16 17:31; Start 11/20/16 at 05:00; Stop 11/20/16 at 22:48; Status DC Acetaminophen/ Hydrocodone Bitart ([place] 7.5-325 Mg) 1 tab Q6H PRN PO PAIN 6- 10 Last administered on 11/21/16 07:26; Start 11/20/16 at 13:00; Stop 11/21/16 at 08:58; Status DC Gadodiamide (Omniscan Pf Inj) 15 ml STK-MED ONCE IV Last administered on 14:26; Start 11/20/16 at 14:26; Stop 11/20/16 at 14:27; Status DC Lorazepam 0.5 mg 0.5 mg ONCE ONCE PO Last administered on 11/20/16 21:43; Start 11/20/16 at 21:15; Stop 11/20/16 at 21:16; Status DC Vancomycin HCl/ Sodium Chloride (Vancomycin Inj/ NS 500 ml Inj) 517.5 ml @ 250 mls/hr Q8H IV Last administered on 11/21/16 10:21; Start 11/21/16 at 02:00; Stop 11/21/16 at 16:57; Status DC Miscellaneous Information SPECIFIC LAB TO BE DAMON... ONCE ONCE .XX ; Start 11/21 at 17:45; Stop 11/21/16 at 17:45; Status DC Acetaminophen/ Hydrocodone Bitart ([place] 7.5-325 Mg) 1 tab Q4H PRN PO PAIN 6- 10 Last administered on 11/26/16 10:11; Start 11/21/16 at 12:00 Lorazepam 0.5 mg 0.5 mg Q12HR PRN PO ANXIETY Last administered on 11/25/16 21: 49; Start 11/21/16 at 09:00 Vancomycin HCl/ Sodium Chloride (Vancomycin Inj/ NS 500 ml Inj) 517.5 ml @ 250 mls/hr Q8H IV Last administered on 11/26/16 08:13; Start 11/22/16 at 01:00 Miscellaneous Information SPECIFIC LAB TO BE DAMON... ONCE ONCE .XX Last administered on 8/13/17at 08:40; Start 11/22/16 at 08:45; Stop 11/22/16 at 08:46 ; Status DC Gentamicin Sulfate (Gentamicin Inj) 240 mg STK-MED ONCE .ROUTE Last administered on 11/22/16 09:45; Start 11/22/16 at 09:33; Stop 11/22/16 at 09:34 ; Status DC Morphine Sulfate (*morphine INJ PERIprocedure ONLY) 8 mg STK-MED ONCE .ROUTE Last administered on 11/22/16 10:08; Start 11/22/16 at 10:08; Stop 11/22/16 at 10:09; Status DC Sodium Chloride (NS Flush) 2 ml UNSCH PRN IV FLUSH FLUSH AFTER USING IV ACCESS ; Start 11/22/16 at 10:15; Status UNV Sodium Chloride (NS Flush) 2 ml BID IV FLUSH ; Start 11/22/16 at 21:00; Status UNV Miscellaneous Information (Post-op Orders (for Pharmacy)) STAT ONCE XX ; Start 11/22/16 at 10:15; Stop 11/22/16 at 10:40; Status DC Ketorolac Tromethamine (Toradol Inj) 30 mg Q6HR IV PUSH Last administered on 05:28; Start 11/22/16 at 12:00; Stop 11/27/16 at 11:59 Acetaminophen (Ofirmev Inj) 1,000 mg Q8HR IV ; Start 11/22/16 at 14:00 Hydromorphone HCl (Dilaudid Pf Inj) 1 mg Q4H PRN IV PUSH BREAKTHROUGH PAIN Last administered on 11/26/16 07:04; Start 11/22/16 at 10:15 Fentanyl Citrate (fentaNYL INJ) 250 mcg STK-MED ONCE .ROUTE ; Start 11/22/16 at 10:12; Stop 11/22/16 at 10:13; Status DC Hydromorphone HCl (*DILAUDID PF INJ PERIprocedural ONLY) 1 mg STK-MED ONCE .ROUTE Last administered on 11/22/16 10:13; Start 11/22/16 at 10:13; Stop at 10:14; Status DC Miscellaneous Information ALL NURSING DEPARTME... UNSCH PRN .XX SEE LABEL COMMENTS; Start 11/22/16 at 10:05; Stop 11/23/16 at 10:04; Status DC Hydromorphone HCl (Dilaudid Pf Inj) 1 mg NOW ONCE IV ; Start 11/22/16 at 11:00 ; Stop 11/22/16 at 11:01; Status DC Miscellaneous Information SPECIFIC LAB TO BE DRAWN:VANCOMYCIN TROUGH DATE TO... ONCE ONCE .XX ; Start 11/25/16 at 08:45; Stop 11/25/16 at 08:46; Status DC A/P Assessment and Plan A/P - sepsis due to cellulitis of the right leg MRI of the right leg with : Anterior and anterolateral pretibial cellulitis with subcutaneous fluid collection characteristic of an abscess. No bony or deep muscular involvement. wound culture with MRSA. s/p I/D and wound vac placement right leg- continue with IV Vanco-continue with pain control- wound vac to be removed today- per surgery. ID follow-up appreciated; recommended po antibiotic upon discharge. -hypokalemia; replaced. -hypertension; resumed home med -DVT prophylaxis with subq Lovenox Discharge Planning dc home with po antibiotics- when cleared by surgery. d/w the patient. Antonio Kinney MD Nov 26, 2016 10:32
[2016-11-26] MEDS ORDERED: DOXY1CAP91 PO (10:34)
[2016-11-26] MEDS ORDERED: HYDR-3366 PO (10:34)
[2016-11-26] MEDS: ENOXAPARIN SODIUM 40 MG/0.4 ML SYRINGE SQ SCH (11:23)
[2016-11-26 12:00] VITALS: BP 127/79; PULSE 74; RESP 20; TEMP 98; O2SAT 96
--- NOTE | 2016-11-26 12:11 | HHI.PR ---
Subjective Subjective Notes Resting in bed Eager to have Wound Vac off Objective Vitals/I&O Vital Signs Date Time Temp Pulse Resp B/P Pulse Ox O2 Delivery O2 Flow Rate FiO2 11/26/16 08:15 98 Room Air 11/26/16 04:00 97.8 71 18 117/70 11/24/16 08:00 21 11/22/16 17:58 3.00 Labs Laboratory Tests Test 11/26/16 06:15 Creatinine 0.66 Estimat Glomerular Filtration 131 Rate Cardiovascular: Regular Lungs: Clear Abdomen: Non-distended, Non-tender Extremities: Other (see below ) Narrative Exam RIGHT leg: Wound vac sponge removed; wound is vascular; wound bed red without exudate or any drainage ----calcium dresssing applied and wrapped with cling gauze A/P Assessment and Plan 46 year old male s/p I&D of RIGHT leg abscess -Removed Wound Vac -Dressing applied and instructions explained to patient---he feels confident that he can do dressing at home -Pain control -ID following for antibiotics -GS clear for DC -Follow up in 7-10 days Attending Statement The exam, history, and the medical decision-making described in the above note were completed with the assistance of the mid-level provider. I reviewed and agree with the findings presented. I attest that I had a [id number] encounter with the patient on the same day, and personally performed and documented my assessment and findings in the medical record. Stephanie Burgos Nov 26, 2016 12:10 David Abdul MD Nov 26, 2016 17:17
--- NOTE | 2016-11-26 12:28 | HHI.DCPOC ---
Discharge Care Plan Diagnosis: (1) Cellulitis and abscess of right leg Your Health Problems Are: Inflammation Swelling Goals to Promote Your Health * To prevent worsening of your condition and complications * To maintain your health at the optimal level Directions to Meet Your Goals Take your medications as prescribed Follow your dietary instruction Follow activity as directed Keep your appointments as scheduled Take your immunizations and boosters as scheduled If your symptoms worsen call your PCP, if no PCP go to Urgent Care Center or Emergency Room Smoking is Dangerous to Your Health. Avoid second hand smoke Call the 24-hour hour crisis hotline for domestic abuse at Antonio Kinney MD Nov 26, 2016 12:28
--- NOTE | 2016-11-26 12:29 | HHI.DS ---
Discharge Summary Admission Date Nov 18, 2016 at 00:16 Discharge Date: Nov 26, 2016 Admitting Diagnosis right lower leg abscess with cellulitis (1) Cellulitis and abscess of right leg ICD Code: L03.115 Diagnosis: Principal Procedures I/D of the right leg/ wound vac placement. Brief History - From Admission patient is a 46 y/o male with history of hypertension who presented to ER with swelling and redness over the right leg. he says that he probably had a spider bite a few days ago. he started to have some swelling and redness over the right leg which gradually got worse.he had some fever at home. he's complaining of some pain to the right leg. CBC/BMP: 11/26/16 0615 Imaging Last Impressions Lower Extremity MRI 11/20/16 0000 Signed Impressions: Service Date/Time: Sunday, November 20, 2016 13:57 - CONCLUSION: Anterior and anterolateral pretibial cellulitis with subcutaneous fluid collection characteristic of an abscess. No bony or deep muscular involvement. Eladio Rojas MD PE at Discharge GENERAL: This is a well-nourished, well-developed patient, in no apparent distress. CARDIOVASCULAR: Regular rate and regular rhythm without murmurs, gallops, or rubs. RESPIRATORY: Clear to auscultation. Breath sounds equal bilaterally. No wheezes , rales, or rhonchi. GASTROINTESTINAL: Abdomen soft, non-tender, nondistended. Normal, active bowel sounds MUSCULOSKELETAL: wound vac in place- right leg. NEURO: Alert & Oriented x4 to person, place, time, situation. Moves all ext x4 skin; erythema and warmth over the right leg. Hospital Course - sepsis due to cellulitis of the right leg MRI of the right leg with : Anterior and anterolateral pretibial cellulitis with subcutaneous fluid collection characteristic of an abscess. No bony or deep muscular involvement. wound culture with MRSA. s/p I/D and wound vac placement right leg- continue with IV Vanco-continue with pain control- wound vac to be removed today- per surgery. ID follow-up appreciated; recommended po antibiotic upon discharge. -hypokalemia; replaced. -hypertension; resumed home med -DVT prophylaxis with subq Lovenox Pt Condition on Discharge: Fair Discharge Disposition: Discharge Home Discharge Time: <= 30 minutes Discharge Instructions DIET: Follow Instructions for: Heart Healthy Diet Activities you can perform: Regular-No Restrictions Follow up Referrals: PCP Follow-up Surgical - 1 Week with David Abdul MD New Medications: Doxycycline (Monohydrate) (Doxycycline) 100 Mg Cap 100 MG PO BID infection Days 14 Ref 0 TAB Hydrocodone-Acetaminophen ([place]) 10-325 Mg Tab 1 TAB PO Q6H PRN PAIN #15 Ref 0 TAB Continued Medications: Amlodipine (Norvasc) 5 Mg Tab 5 MG PO DAILY Blood Pressure Management #30 Ref 0 TAB Lisinopril (Lisinopril) 20 Mg Tab 20 MG PO DAILY #30 Ref 0 TAB Antonio Kinney MD Nov 26, 2016 12:28
--- NOTE | 2016-11-26 13:00 | PD.WCN.NOT ---
Wound Consult Description: R leg surgical wound Communicated with: ELÍAS Rod Patient Recommendation: Cleanse right leg wound with Normal Saline Q3D and PRN for saturation or dislodgment. Apply cut Maxorb II into wound bed, moisten with NS if wound bed is dry, and cover with 4x4 gauze and rolled gauze secured with tape. All supplies were provided for 2 weeks worth of daily dressing changes. Additional Information: Patient seen on for wound VAC removal with ELÍAS Burgos Wound VAC removed from right lower extremity. Wound was cleansed with NS and gauze. Normal Saline moistened Maxorb II was placed into wound bed and can remain for up to 3 days, however patient states that he showers daily. If dressing becomes saturated, it may be changed daily with showering. Maxorb II was covered with 4x4 gauze and secured with rolled gauze and tape. Neg Pressure Wound Therapy Wound Location Wound Location: R leg surgical wound Wound Description Length: ~6 cm Width: ~1 cm Depth: ~0.8cm Wound bed appearance: Wound is noted with ~100% red granulation tissue Periwound appearance: Other (dry and peeling) Additonal Information Wound VAC removed and discontinued Patricia Mejía [facility] Nov 26, 2016 13:00
== END 2016-11-26 18:10 | disposition home or self-care (01) | DRG 872 ==
LOC: NEPE 22:31 → NEDH 11-18 00:16 → NEDA 11-18 14:45 → N04A 11-18 15:06
PROVIDERS: ADMIT Internal Medicine; ATTEND Internal Medicine
PROC: 2W1LX6Z Compression of Right Lower Extremity using Pressure Dressing (ICD-10-PCS; 2016-11-22)
PROC: 0J9N0ZX Drainage of Right Lower Leg Subcutaneous Tissue and Fascia, Open Approach, Diagnostic (ICD-10-PCS; principal; 2016-11-22 09:23)
DX: A41.9 Sepsis, unspecified organism (principal); L02.415 Cutaneous abscess of right lower limb; L03.115 Cellulitis of right lower limb; B95.62 Methicillin resistant Staphylococcus aureus infection as the cause of diseases classified elsewhere; E87.6 Hypokalemia; I10 Essential (primary) hypertension; F41.9 Anxiety disorder, unspecified; Z23 Encounter for immunization
CPT/HCPCS: 73720; 76937; 80048; 80202; 82565; 83605; 85025; 86403; 87040; 87070; 87147; 87186; 87205; 90732; 96374; A9579; J0690; J1170; J1580; J1650; J1885; J2270; J2405; J2543; J3010; J3370; J7040

== ENCOUNTER 2017-01-04 07:50 | Emergency (ER) | payer OTHER ==
[~2017-01-04] VITALS: Ht 172.7 cm; Wt 83.0 kg
[~2017-01-04 07:50] MED LIST changes: +AMLO5 PO; +DOXY1CAP91 PO; +HYDR-3366 PO; +LISI-515 PO; -OXYC-360 PO; -POLY10O LEFT EYE; -Z.0.NO CURRENT MEDS
[2017-01-04 07:51] VITALS: BP 161/95; PULSE 104; RESP 20; TEMP 98.4; O2SAT 99
[2017-01-04] MEDS ORDERED: CEPHALEXIN MONOHYDRATE 500 MG CAP PO ONE (08:30)
[2017-01-04] MEDS ORDERED: KETOROLAC TROMETHAMINE 60 MG/2 ML (IM) VIAL IM ONE (08:30)
[2017-01-04] MEDS ORDERED: MORPHINE SULFATE 8 MG/ML INJ IM ONE (08:30)
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
[2017-01-04] MEDS ORDERED: MORPHINE SULFATE 4 MG/ML INJ IM ONE (09:30)
[2017-01-04] MEDS ORDERED: IBUP-232 PO (09:51)
[2017-01-04] MEDS ORDERED: HYDR-3516 PO (09:51)
[2017-01-04] MEDS ORDERED: CEPH-460 PO (09:51)
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
== END 2017-01-04 10:40 | disposition home or self-care (01) ==
LOC: NEPC 07:50
DX: S92.354A Nondisplaced fracture of fifth metatarsal bone, right foot, initial encounter for closed fracture (principal); I10 Essential (primary) hypertension; V29.9XXA Motorcycle rider (driver) (passenger) injured in unspecified traffic accident, initial encounter; Z79.899 Other long term (current) drug therapy
CPT/HCPCS: 12001; 29515; 73610; 73630; 80307; 96372; 99284; E0113; J1885; J2270